=== PATIENT | female | born 1965 | race Caucasian/White ===

== ENCOUNTER 2024-06-21 18:27 | Outpatient (BNV) | payer MEDICARE, SELFPAY | END 2024-06-22 12:53 | PROVIDERS: Admitting Provider Psychiatry & Neurology Psychiatry; Visit Provider Internal Medicine Cardiovascular Disease | DX: I45.10 Unspecified right bundle-branch block (principal) | CPT/HCPCS: 93010 ==

== ENCOUNTER 2024-06-21 18:27 | Outpatient (BNV) | payer MEDICARE, MEDICAID, SELFPAY | END 2024-07-28 10:16 | PROVIDERS: Admitting Provider Psychiatry & Neurology Psychiatry; Visit Provider Internal Medicine | DX: I45.19 Other right bundle-branch block (principal) | CPT/HCPCS: 93010 ==

== ENCOUNTER 2024-06-21 18:27 | Inpatient (IN) | payer MEDICARE, SELFPAY, MEDICAID ==
--- NOTE | ~2024-06-21 | XR_ITS ---
EXAMINATION: XR FOOT, RIGHT CLINICAL INFORMATION: fall COMPARISON: None available. TECHNIQUE: 2 views of the right foot. FINDINGS: Soft tissue swelling along the dorsal aspect of the foot and ankle. Limited evaluation of the TMT joints due to overlapping structures. In the foot otherwise, no acute fracture or dislocation is identified. No erosions. No abnormal soft tissue calcification. XR/XR foot RT 2V IMPRESSION: Soft tissue swelling. Limited evaluation the tarsometatarsal joints due to overlapping structures. No acute fracture or malalignment is identified in the remainder of the bones. Electronically signed by: Amrit Floyd MD 07/28/2024 06:28 PM [facility]
[2024-06-21 18:40] VITALS: BP 133/67; PULSE 72; RESP 18; TEMP 36.8; O2SAT 99
--- NOTE | 2024-06-21 19:03 | PC.NURSE ---
Pt. arrived on unit via stretcher at 1840 accompanied by 2 sales negotiator. Pt. assisted off stretcher with assist of 2. Contraband search performed with no findings. Skin assmt. revealed warm, dry and intact skin with tatoos on upper and lower extremites. Pt. has indwelling ventura catheter for reported urinary retention, but pt. reports she has no such problem and this is how the last hospital deals with incontinence. Pt. with strong odor of urine. She is alert and oriented X 4. She has had increased depression and SI due to recent stressors, which include eviction proceedings from her apartment, a family , and her mobility issues which kept her isolated in her apartment.
[2024-06-21 20:01] VITALS: BMI 35.8
[2024-06-21] MEDS: amLODIPine Besylate 5 MG TABLET PO (21:45)
[2024-06-21] MEDS: Nicotine 14 MG PATCH.TD24 TRANSDERMA (21:45)
[2024-06-21] MEDS: Melatonin 3 MG TABLET 6 MG PO (21:46)
[2024-06-21] MEDS: Acetaminophen 325 MG TABLET 650 MG PO (21:46)
[2024-06-21] MEDS: hydrOXYzine HCL 25 MG TABLET PO (21:46)
--- NOTE | 2024-06-22 | ECG_ITS ---
Test Reason : BASELINE FOR POSSIBLE ECT Blood Pressure : / mmHG Vent. Rate : 085 BPM Atrial Rate : 085 BPM P-R Int : 154 ms QRS Dur : 102 ms QT Int : 380 ms P-R-T Axes : 064 -07 056 degrees QTc Int : 452 ms Normal sinus rhythm Incomplete right bundle branch block Borderline ECG No previous ECGs available Referred By: Tracie Cameron Electronically Signed By:Ivan Gandara
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
[2024-06-22 08:15] VITALS: BP 190/81; PULSE 68; RESP 14; TEMP 36.6; O2SAT 98
[2024-06-22] MEDS: amLODIPine Besylate 5 MG TABLET PO (08:17)
[2024-06-22] MEDS: Atorvastatin Calcium 40 MG TABLET PO (08:18)
[2024-06-22] MEDS: Multivitamin TABLET 1 TAB PO (08:18)
[2024-06-22] MEDS: Aspirin 81 MG TAB.CHEW PO (08:18)
[2024-06-22] MEDS: Cholecalciferol (Vitamin D3) 25 MCG TABLET 50 MCG PO (08:18)
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
[2024-06-22 08:32] LABS: Estimated Average Glucose 100 mg/dL; Hemoglobin A1C 110.9161 umol/L; Hemoglobin A1c % 5.1 % (<6.0); Total Hemoglobin (HGBA1C) 3446.4164 umol/L
[2024-06-22 09:14] LABS: Alanine Aminotransferase 8 U/L (0-31); Albumin Level 3.7 g/dL (3.5-5.0); Alkaline Phosphatase 66 U/L (39-117); Anion Gap 11 (12-20); Aspartate Amino Transferase 20 U/L (5-31); Bilirubin Total 0.3 mg/dL (0.0-1.0); Blood Urea Nitrogen 10 mg/dL (9-16); Calcium 9.5 mg/dL (8.4-10.2); Carbon Dioxide 27 mmol/L (22-29); Chloride 108 mmol/L (96-108); Cholesterol 188 mg/dL (<200); Creatinine Clr Calc Pharmacy 101.3; Estimated Glomerular Filt Rate > 60; Glucose Fasting 89 mg/dL (60-99); HDL Cholesterol 37 mg/dL (>40); LDL Cholesterol Calculated 111 mg/dL (<100); Potassium 3.7 mmol/L (3.3-5.1); Sodium 142 mmol/L (135-145); Total Protein 6.7 g/dL (6.5-8.0); Triglycerides 204 mg/dL (<150)
[2024-06-22 09:33] LABS: TSH reflex Free T4 3.39 uIU/mL (0.32-4.0)
--- NOTE | 2024-06-22 11:17 | PM.IMCN ---
History of Present Illness Data of Consult Service Date: 06/22/24 Primary Care Provider: None Physician HPI A 58 years old lady with PMH of HTN, HLD, MS, degenerative disc disease, smoking and Depression among others who presents from [facility] for Depression and SI. The patient had recent hospitalization for SI 2 weeks dami and had two reported attempts in past. She denies any chest pain, palpitations, SOB, nausea, vomiting, diarrhea or urinary symptoms. Hospitalist asked for medical evaluation of the patient. Review of Systems Review of Systems: No fever, chills or weakness No chest pain, palpitation No shortness of breath or coughing No abdominal pain, nausea or vomiting No urinary symptoms No any rash or wounds PMFSH Medical History Depression Social History Household Members: None Housing: Apartment Do you presently have visiting nurse or other home services: No Patient Tobacco Use Status: Current everyday Tobacco user Cigarettes Per Day: 5 Smoked in Last 30 Days: Yes Patient Interested in Nicotine Replacement: Yes Patient Given Instructions on How to Stop Smoking: No Use of substances other than those prescribed or required for medical reasons: No Currently Displaying Signs/Symptoms of Drug Intoxication Withdrawal: No Have you been hit, kicked, punched, or otherwise hurt by someone within the past year? If so, by whom?: No Do you feel safe in your current relationship?: No Current Relationship Is there a partner from a previous relationship who is making you feel unsafe now?: No Are you made to feel afraid or neglected: No Advance Directives: No Advance Directives Information Provided: No Do you have thoughts of harming others: None Do you have a plan to hurt others: No Plan Recently lost weight without trying: No Nutrition Risks: No Nutritional Risk Patient : No : No Poor oral hygiene: No Meds Allergies Allergy/AdvReac Type Severity Reaction Status Date / Time Sulfa (Sulfonamide Allergy Unknown Verified 06/21/24 20:01 Antibiotics) sulfamethoxazole Allergy Unknown Verified 06/21/24 20:01 [From Bactrim] trimethoprim [From Bactrim] Allergy Unknown Verified 06/21/24 20:01 venlafaxine [From Effexor] Allergy Unknown Verified 06/21/24 20:01 Active Medications: Current Medications Acetaminophen (Acetaminophen 325 Mg Tablet) 650 mg PO Q6H PRN PRN Reason: Headache/Pain Mild Scale (1-3) Last Admin: 06/21/24 21:46 Dose: 650 mg Al Hydroxide/Mg Hydroxide (Magnesium Hydrox/Alum Hydrox 30 Ml Oral.Susp) 30 ml PO Q6H PRN PRN Reason: Heartburn/Nausea Amlodipine Besylate (Amlodipine Besylate 5 Mg Tablet) 5 mg PO DAILY COUNTS INCLUDE 234 BEDS AT THE [facility]; Protocol Last Admin: 06/22/24 08:17 Dose: 5 mg Aspirin (Aspirin 81 Mg Tab.Chew) 81 mg PO DAILY COUNTS INCLUDE 234 BEDS AT THE [facility] Last Admin: 06/22/24 08:18 Dose: 81 mg Atorvastatin Calcium (Atorvastatin Calcium 40 Mg Tablet) 40 mg PO DAILY COUNTS INCLUDE 234 BEDS AT THE [facility] Last Admin: 06/22/24 08:18 Dose: 40 mg Hydroxyzine HCl (Hydroxyzine Hcl 25 Mg Tablet) 25 mg PO Q6H PRN PRN Reason: Anxiety Last Admin: 06/21/24 21:46 Dose: 25 mg Magnesium Hydroxide (Milk Of Magnesia 30 Ml Oral.Susp) 30 ml PO DAILY PRN PRN Reason: Constipation Melatonin (Melatonin 3 Mg Tablet) 6 mg PO BEDTIME PRN PRN Reason: Insomnia Last Admin: 06/21/24 21:46 Dose: 6 mg Multivitamins/Vitamin C (Multivitamin Tablet) 1 tab PO DAILY COUNTS INCLUDE 234 BEDS AT THE [facility] Last Admin: 06/22/24 08:18 Dose: 1 tab Nicotine (Nicotine 14 Mg Patch.Td24) 14 mg TRANSDERMA Q24H COUNTS INCLUDE 234 BEDS AT THE [facility] Last Admin: 06/21/24 21:45 Dose: 14 mg Nicotine Polacrilex (Nicotine Polacrilex 2 Mg Gum) 4 mg BUCCAL Q2H PRN PRN Reason: Nicotine Cravings Trazodone HCl (Trazodone Hcl 50 Mg Tablet) 50 mg PO BEDTIME MRX1 PRN PRN Reason: Insomnia Vitamin D (Cholecalciferol (Vitamin D3) 25 Mcg Tablet) 50 mcg PO DAILY COUNTS INCLUDE 234 BEDS AT THE [facility] Last Admin: 06/22/24 08:18 Dose: 50 mcg Home Medications ?Medication ?Instructions ?Recorded ?Confirmed ?Last Taken ?Type amlodipine 5 mg tablet 5 mg PO QAM 06/21/24 06/21/24 Unknown History aspirin 81 mg tablet 81 mg PO DAILY 06/21/24 06/21/24 Unknown History atorvastatin 40 mg tablet 40 mg PO DAILY 06/21/24 06/21/24 Unknown History carboxymethylcellulose sodium 0.5 drp PRN Dry Eyes 06/21/24 Unknown History % eye drops in a dropperette (Refresh Plus) cefpodoxime 200 mg tablet 200 mg PO Q12H 06/21/24 06/21/24 06/21/24 09:00 History cholecalciferol (vitamin D3) 50 50 mcg PO DAILY 06/21/24 06/21/24 Unknown History mcg (2,000 unit) capsule citalopram 20 mg tablet PO 06/21/24 06/21/24 Unknown History melatonin 3 mg tablet 6 mg PO BEDTIME PRN Insomnia 06/21/24 06/21/24 Unknown History multivitamin 1 tab PO DAILY 06/21/24 06/21/24 Unknown History nicotine 14 mg/24 hr daily 1 patch transdermal Q24H 06/21/24 06/21/24 Unknown History transdermal patch (Nicoderm CQ) Physical Exam Vital Signs and Narrative: Vital Signs: Last Vital Signs Temp 97.9 F 06/22/24 08:15 Pulse 68 06/22/24 08:15 Resp 14 06/22/24 08:15 BP 190/81 H 06/22/24 08:15 Pulse Ox 98 06/22/24 08:15 O2 Del Method Room Air 06/22/24 08:15 BMI result Body Mass Index 35.8 Const: Other: Constitutional : Awake, interactive, not in distress Neck : Normal inspection, Supple Cardiovascular : RRR, no JVP, no lower extremity edema Respiratory : good bilateral air entry, no crackles, wheezes or rhonchi Gastrointestinal: soft, lax, Normal bowel sounds, Non tender Skin : Warm, Dry Neurological : Alert & oriented x3, No focal deficit , CN 2-12 within normal Results Labs 06/22/24 08:08 Labs: Laboratory Results - last 24 hr 06/22/24 08:08 Anion Gap 11 L Estim Creat Clear Calc 101.3 Estimated GFR > 60 Fasting Glucose 89 Estimat Average Glucose 100 Hemoglobin A1c % 5.1 Calcium 9.5 Total Bilirubin 0.3 AST 20 ALT 8 Alkaline Phosphatase 66 Total Protein 6.7 Albumin 3.7 Triglycerides 204 H Cholesterol 188 LDL Cholesterol, Calc 111 H HDL Cholesterol 37 L TSH 3.39 Assessment and Plan (1) Depression: Status: Acute Plan A 58 years old lady with PMH of HTN, HLD, MS, degenerative disc disease, smoking and Depression among others who presents from [facility] for Depression and SI. HTN Continue Amlidpine 5mg daily Consider adding 2nd agent if remains hypertensive HLD Continue statin Smoking Advised cessation, NRT give Depression with SI psychiatrist to manage check EKG Patient has no obvious contraindications for ECT if needed , no more testing needed at this point Thank you for the consult. will follow with you as needed.
[2024-06-22 17:40] VITALS: BP 144/72
[2024-06-22 20:00] VITALS: BP 136/63; PULSE 85; RESP 16; TEMP 36.1; O2SAT 97
[2024-06-22] MEDS: Nicotine 14 MG PATCH.TD24 TRANSDERMA (21:43)
[2024-06-22] MEDS: Melatonin 3 MG TABLET 6 MG PO (21:44)
[2024-06-22] MEDS: Acetaminophen 325 MG TABLET 650 MG PO (23:04)
[2024-06-23 09:04] VITALS: BP 113/74; PULSE 62; RESP 16; TEMP 36; O2SAT 97
[2024-06-23] MEDS: Multivitamin TABLET 1 TAB PO (09:06)
[2024-06-23] MEDS: Cholecalciferol (Vitamin D3) 25 MCG TABLET 50 MCG PO (09:06)
[2024-06-23] MEDS: amLODIPine Besylate 5 MG TABLET PO (09:07)
[2024-06-23] MEDS: Aspirin 81 MG TAB.CHEW PO (09:07)
[2024-06-23] MEDS: buPROPion HCl XL 150 MG TAB.ER.24H PO (09:48)
[2024-06-23] MEDS: Cyclobenzaprine HCl 5 MG TABLET PO ×2 (09:48→20:38)
[2024-06-23 16:06] VITALS: BP 123/89
[2024-06-23] MEDS: cloNIDine HCL 0.1 MG TABLET PO (16:06)
[2024-06-23 20:00] VITALS: BP 123/59; PULSE 80; RESP 16; TEMP 36.8; O2SAT 96
[2024-06-23] MEDS: Nicotine 14 MG PATCH.TD24 TRANSDERMA (20:35)
[2024-06-23] MEDS: Acetaminophen 325 MG TABLET 650 MG PO (20:39)
[2024-06-23] MEDS: Melatonin 3 MG TABLET 6 MG PO (20:40)
[2024-06-23] MEDS: Atorvastatin Calcium 40 MG TABLET PO (20:40)
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
[2024-06-24 07:00] VITALS: BMI 32.6
[2024-06-24 08:41] VITALS: BP 127/61; PULSE 80; RESP 17; TEMP 36.1; O2SAT 97
[2024-06-24] MEDS: Cholecalciferol (Vitamin D3) 25 MCG TABLET 50 MCG PO (08:49)
[2024-06-24] MEDS: Multivitamin TABLET 1 TAB PO (08:49)
[2024-06-24] MEDS: buPROPion HCl XL 150 MG TAB.ER.24H PO (08:49)
[2024-06-24] MEDS: Aspirin 81 MG TAB.CHEW PO (08:49)
[2024-06-24] MEDS: amLODIPine Besylate 5 MG TABLET PO (08:49)
[2024-06-24] MEDS: Acetaminophen 325 MG TABLET 650 MG PO ×2 (08:55→16:13)
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
--- NOTE | 2024-06-24 17:46 | PC.NURSE ---
Patient incontinent x large amount of urine in brief, voided on the floor and also had 500cc urine in the collection hat today after supper. Clean catch urine specimen obtained and sent to lab, urine was clear yellow.
[2024-06-24 17:54] LABS: Appearance Urine Clear; Color Urine Yellow; Glucose Urine UA Negative (Negative); Leukocyte Esterase Urine Moderate (2+) (Negative); Nitrite Urine Positive (Negative); UMIC TRIGGER UACC YES; Urine Blood Negative (Negative); Urine Ketones Negative (Negative); Urine Protein Negative (Neg-Trace)
[2024-06-24 18:12] LABS: Bacteria Urine 4+ (None Seen); Hyaline Casts Urine 0-2 /LPF (0-2); RBC Urine 0-2 /HPF (0-2); Squamous Epithelial Cell Urine 0-2 /HPF (0-2); UACC Culture Trigger YES
[2024-06-24] MEDS: Nicotine 14 MG PATCH.TD24 TRANSDERMA (19:53)
[2024-06-24] MEDS: Atorvastatin Calcium 40 MG TABLET PO (19:53)
[2024-06-24 19:56] VITALS: BP 127/62; PULSE 77; RESP 16; TEMP 36.3; O2SAT 98
[2024-06-24] MEDS: Melatonin 3 MG TABLET 6 MG PO (20:40)
[2024-06-24] MEDS: levoFLOXacin 750 MG TABLET PO (20:41)
[2024-06-25 02:34] VITALS: BP 141/90
[2024-06-25] MEDS: traZODone HCL 50 MG TABLET PO (02:34)
[2024-06-25] MEDS: Cyclobenzaprine HCl 5 MG TABLET PO ×2 (02:34→12:25)
[2024-06-25] MEDS: Acetaminophen 325 MG TABLET 650 MG PO ×2 (02:34→12:26)
[2024-06-25] MEDS: cloNIDine HCL 0.1 MG TABLET PO (02:34)
[2024-06-25] MEDS: Multivitamin TABLET 1 TAB PO (08:34)
[2024-06-25] MEDS: Cholecalciferol (Vitamin D3) 25 MCG TABLET 50 MCG PO (08:34)
[2024-06-25] MEDS: buPROPion HCl XL 150 MG TAB.ER.24H PO (08:35)
[2024-06-25] MEDS: Aspirin 81 MG TAB.CHEW PO (08:35)
[2024-06-25 09:16] VITALS: BP 114/57
[2024-06-25] MEDS: amLODIPine Besylate 5 MG TABLET PO (09:16)
[2024-06-25 09:43] VITALS: BP 114/57; PULSE 87; RESP 20; TEMP 36.2; O2SAT 100
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
[2024-06-25 19:17] VITALS: BP 113/59; PULSE 86; RESP 16; TEMP 36.2; O2SAT 100
[2024-06-25] MEDS: Atorvastatin Calcium 40 MG TABLET PO (19:18)
[2024-06-25] MEDS: Nicotine 14 MG PATCH.TD24 TRANSDERMA (19:18)
[2024-06-25] MEDS: levoFLOXacin 750 MG TABLET PO (19:19)
[2024-06-26 08:46] VITALS: BP 114/68; PULSE 99; TEMP 36.4; O2SAT 96
[2024-06-26] MEDS: Cholecalciferol (Vitamin D3) 25 MCG TABLET 50 MCG PO (09:43)
[2024-06-26] MEDS: amLODIPine Besylate 5 MG TABLET PO (09:44)
[2024-06-26] MEDS: buPROPion HCl XL 150 MG TAB.ER.24H PO (09:44)
[2024-06-26] MEDS: Multivitamin TABLET 1 TAB PO (09:44)
[2024-06-26] MEDS: Aspirin 81 MG TAB.CHEW PO (09:44)
[2024-06-26] MEDS: Acetaminophen 325 MG TABLET 650 MG PO ×2 (09:58→15:33)
[2024-06-26] MEDS: Cyclobenzaprine HCl 5 MG TABLET PO (09:58)
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
[2024-06-26] MEDS: Cyclobenzaprine HCl 10 MG TABLET PO (15:32)
[2024-06-26 15:33] VITALS: BP 110/70
[2024-06-26] MEDS: cloNIDine HCL 0.1 MG TABLET PO (15:33)
[2024-06-26] MEDS: Nicotine 14 MG PATCH.TD24 TRANSDERMA (19:48)
[2024-06-26] MEDS: Atorvastatin Calcium 40 MG TABLET PO (19:48)
[2024-06-26] MEDS: levoFLOXacin 750 MG TABLET PO (19:48)
[2024-06-26 19:50] VITALS: BP 113/70; PULSE 76; RESP 16; TEMP 35.9; O2SAT 98
[2024-06-26] MEDS: Ibuprofen 600 MG TABLET PO (21:55)
[2024-06-27] MEDS: Ibuprofen 600 MG TABLET PO ×2 (08:25→18:02)
[2024-06-27] MEDS: Cyclobenzaprine HCl 10 MG TABLET PO ×2 (08:25→18:02)
[2024-06-27 08:26] VITALS: BP 125/60
[2024-06-27] MEDS: buPROPion HCl XL 150 MG TAB.ER.24H PO (08:26)
[2024-06-27] MEDS: amLODIPine Besylate 5 MG TABLET PO (08:26)
[2024-06-27] MEDS: Multivitamin TABLET 1 TAB PO (08:26)
[2024-06-27] MEDS: Aspirin 81 MG TAB.CHEW PO (08:26)
[2024-06-27] MEDS: Cholecalciferol (Vitamin D3) 25 MCG TABLET 50 MCG PO (08:26)
[2024-06-27 09:45] VITALS: BP 124/60; PULSE 85; TEMP 36.8; O2SAT 96
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
[2024-06-27] MEDS: Acetaminophen 325 MG TABLET 650 MG PO (12:03)
[2024-06-27 20:00] VITALS: BP 106/55; PULSE 88; RESP 16; TEMP 36.6; O2SAT 97
[2024-06-27] MEDS: Atorvastatin Calcium 40 MG TABLET PO (20:03)
[2024-06-27] MEDS: Nicotine 14 MG PATCH.TD24 TRANSDERMA (20:03)
[2024-06-27] MEDS: levoFLOXacin 750 MG TABLET PO (20:03)
[2024-06-27] MEDS: Gabapentin 300 MG CAPSULE PO (20:04)
[2024-06-28 08:53] VITALS: BP 131/60; PULSE 93; RESP 17; TEMP 36.2; O2SAT 96
[2024-06-28] MEDS: amLODIPine Besylate 5 MG TABLET PO (08:54)
[2024-06-28] MEDS: Gabapentin 300 MG CAPSULE PO ×2 (08:54→19:39)
[2024-06-28] MEDS: Aspirin 81 MG TAB.CHEW PO (08:54)
[2024-06-28] MEDS: Multivitamin TABLET 1 TAB PO (08:54)
[2024-06-28] MEDS: buPROPion HCl XL 150 MG TAB.ER.24H PO (08:55)
[2024-06-28] MEDS: Cholecalciferol (Vitamin D3) 25 MCG TABLET 50 MCG PO (08:55)
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
[2024-06-28 19:36] VITALS: BP 123/61; PULSE 96; RESP 18; TEMP 36.9; O2SAT 96
[2024-06-28] MEDS: levoFLOXacin 750 MG TABLET PO (19:38)
[2024-06-28] MEDS: Atorvastatin Calcium 40 MG TABLET PO (19:39)
[2024-06-28] MEDS: Nicotine 14 MG PATCH.TD24 TRANSDERMA (19:39)
[2024-06-28] MEDS: Ibuprofen 600 MG TABLET PO (22:40)
[2024-06-29 08:20] VITALS: BP 135/74; PULSE 91; RESP 14; TEMP 36; O2SAT 98
[2024-06-29] MEDS: Gabapentin 300 MG CAPSULE PO ×2 (08:22→20:42)
[2024-06-29] MEDS: Multivitamin TABLET 1 TAB PO (08:22)
[2024-06-29] MEDS: buPROPion HCl XL 150 MG TAB.ER.24H PO (08:22)
[2024-06-29] MEDS: amLODIPine Besylate 5 MG TABLET PO (08:22)
[2024-06-29] MEDS: Cholecalciferol (Vitamin D3) 25 MCG TABLET 50 MCG PO (08:22)
[2024-06-29] MEDS: Aspirin 81 MG TAB.CHEW PO (08:22)
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
[2024-06-29] MEDS: levoFLOXacin 750 MG TABLET PO (09:51)
[2024-06-29] MEDS: Throat Lozenge, Medicated LOZENGE 1 LOZENGE MUCOUS MEM (09:52)
[2024-06-29 10:33] LABS: Influenza A PCR NEGATIVE (Negative); Influenza B PCR NEGATIVE (Negative); Resp Syncy Virus RNA Qual PCR NEGATIVE (Negative); SARS COV2 PCR INHOUSE NEGATIVE (Negative)
[2024-06-29] MEDS: Ibuprofen 600 MG TABLET PO ×2 (13:33→20:42)
[2024-06-29] MEDS: hydrOXYzine HCL 25 MG TABLET PO (14:59)
[2024-06-29 20:00] VITALS: BP 137/68; PULSE 81; RESP 16; TEMP 36.6; O2SAT 98
[2024-06-29] MEDS: traZODone HCL 50 MG TABLET PO (20:42)
[2024-06-29] MEDS: Atorvastatin Calcium 40 MG TABLET PO (20:42)
[2024-06-29] MEDS: Nicotine 14 MG PATCH.TD24 TRANSDERMA (20:43)
[2024-06-30] MEDS: hydrOXYzine HCL 25 MG TABLET PO ×2 (09:44→21:22)
[2024-06-30] MEDS: Ibuprofen 600 MG TABLET PO (09:44)
[2024-06-30 09:45] VITALS: BP 122/71; PULSE 97; RESP 18; TEMP 36.3; O2SAT 99
[2024-06-30] MEDS: Gabapentin 300 MG CAPSULE PO ×3 (09:45→21:19)
[2024-06-30] MEDS: buPROPion HCl XL 300 MG TAB.ER.24H PO (09:45)
[2024-06-30] MEDS: amLODIPine Besylate 5 MG TABLET PO (09:45)
[2024-06-30] MEDS: Cholecalciferol (Vitamin D3) 25 MCG TABLET 50 MCG PO (09:45)
[2024-06-30] MEDS: Multivitamin TABLET 1 TAB PO (09:45)
[2024-06-30] MEDS: Aspirin 81 MG TAB.CHEW PO (09:45)
[2024-06-30] MEDS: levoFLOXacin 750 MG TABLET PO (09:45)
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
[2024-06-30 20:00] VITALS: BP 137/68; PULSE 93; RESP 16; TEMP 36.3; O2SAT 99
[2024-06-30] MEDS: Nicotine 14 MG PATCH.TD24 TRANSDERMA (21:18)
[2024-06-30] MEDS: traZODone HCL 50 MG TABLET PO (21:19)
[2024-06-30] MEDS: Atorvastatin Calcium 40 MG TABLET PO (21:20)
[2024-07-01 08:00] VITALS: BP 126/60; PULSE 92; RESP 16; O2SAT 100
[2024-07-01 08:07] VITALS: BP 126/60
[2024-07-01] MEDS: Cholecalciferol (Vitamin D3) 25 MCG TABLET 50 MCG PO (08:07)
[2024-07-01] MEDS: hydroCHLOROthiazide 12.5 MG TABLET PO (08:07)
[2024-07-01] MEDS: buPROPion HCl XL 300 MG TAB.ER.24H PO (08:07)
[2024-07-01] MEDS: Aspirin 81 MG TAB.CHEW PO (08:07)
[2024-07-01] MEDS: Gabapentin 300 MG CAPSULE PO ×3 (08:07→21:22)
[2024-07-01 09:04] VITALS: BMI 33.8
[2024-07-01] MEDS: Multivitamin TABLET 1 TAB PO (11:12)
[2024-07-01] MEDS: levoFLOXacin 750 MG TABLET PO (11:12)
[2024-07-01] MEDS: Acetaminophen 325 MG TABLET 650 MG PO ×2 (11:17→21:22)
[2024-07-01] MEDS: hydrOXYzine HCL 25 MG TABLET PO (14:03)
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
[2024-07-01 20:00] VITALS: BP 125/76; PULSE 90; RESP 16; TEMP 36.7; O2SAT 95
[2024-07-01] MEDS: Cyclobenzaprine HCl 10 MG TABLET PO (21:22)
[2024-07-01] MEDS: Atorvastatin Calcium 40 MG TABLET PO (21:22)
[2024-07-01] MEDS: Nicotine 14 MG PATCH.TD24 TRANSDERMA (21:23)
[2024-07-02 09:05] VITALS: BP 120/67; PULSE 93; RESP 15; TEMP 36.7; O2SAT 97
[2024-07-02] MEDS: buPROPion HCl XL 300 MG TAB.ER.24H PO (09:07)
[2024-07-02] MEDS: Aspirin 81 MG TAB.CHEW PO (09:07)
[2024-07-02] MEDS: Cholecalciferol (Vitamin D3) 25 MCG TABLET 50 MCG PO (09:07)
[2024-07-02] MEDS: Multivitamin TABLET 1 TAB PO (09:07)
[2024-07-02] MEDS: Gabapentin 300 MG CAPSULE PO ×3 (09:07→20:47)
[2024-07-02] MEDS: hydroCHLOROthiazide 12.5 MG TABLET PO (09:07)
[2024-07-02] MEDS: levoFLOXacin 750 MG TABLET PO (12:02)
[2024-07-02] MEDS: Acetaminophen 325 MG TABLET 650 MG PO (12:03)
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
[2024-07-02 20:00] VITALS: BP 125/62; PULSE 84; RESP 14; TEMP 36.4; O2SAT 98
[2024-07-02] MEDS: Nicotine 14 MG PATCH.TD24 TRANSDERMA (20:45)
[2024-07-02] MEDS: Atorvastatin Calcium 40 MG TABLET PO (20:47)
[2024-07-03 08:00] VITALS: BP 124/60; PULSE 93; RESP 18; TEMP 36.9; O2SAT 96
[2024-07-03] MEDS: Multivitamin TABLET 1 TAB PO (09:59)
[2024-07-03] MEDS: Cholecalciferol (Vitamin D3) 25 MCG TABLET 50 MCG PO (09:59)
[2024-07-03] MEDS: levoFLOXacin 750 MG TABLET PO (09:59)
[2024-07-03] MEDS: buPROPion HCl XL 300 MG TAB.ER.24H PO (09:59)
[2024-07-03] MEDS: Gabapentin 300 MG CAPSULE PO ×3 (09:59→20:17)
[2024-07-03] MEDS: hydroCHLOROthiazide 12.5 MG TABLET PO (09:59)
[2024-07-03] MEDS: Cyclobenzaprine HCl 10 MG TABLET PO (10:00)
[2024-07-03] MEDS: Aspirin 81 MG TAB.CHEW PO (10:00)
[2024-07-03] MEDS: Ibuprofen 600 MG TABLET PO (12:49)
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
[2024-07-03] MEDS: Acetaminophen 325 MG TABLET 650 MG PO (15:25)
[2024-07-03 20:00] VITALS: BP 127/61; PULSE 87; RESP 16; TEMP 36.5; O2SAT 95
[2024-07-03] MEDS: Nicotine 14 MG PATCH.TD24 TRANSDERMA (20:16)
[2024-07-03] MEDS: Atorvastatin Calcium 40 MG TABLET PO (20:17)
[2024-07-04 07:54] VITALS: BP 120/75; PULSE 84; RESP 17; TEMP 36.2; O2SAT 99
[2024-07-04] MEDS: Cholecalciferol (Vitamin D3) 25 MCG TABLET 50 MCG PO (08:06)
[2024-07-04] MEDS: Multivitamin TABLET 1 TAB PO (08:06)
[2024-07-04] MEDS: hydroCHLOROthiazide 12.5 MG TABLET PO (08:06)
[2024-07-04] MEDS: Aspirin 81 MG TAB.CHEW PO (08:06)
[2024-07-04] MEDS: buPROPion HCl XL 300 MG TAB.ER.24H PO (08:06)
[2024-07-04] MEDS: Gabapentin 300 MG CAPSULE PO ×3 (08:07→21:08)
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
[2024-07-04] MEDS: hydrOXYzine HCL 25 MG TABLET PO (16:58)
[2024-07-04 20:00] VITALS: BP 118/57; PULSE 93; RESP 16; TEMP 36.4; O2SAT 95
[2024-07-04] MEDS: Nicotine 14 MG PATCH.TD24 TRANSDERMA (21:06)
[2024-07-04] MEDS: Atorvastatin Calcium 40 MG TABLET PO (21:08)
[2024-07-05 09:35] VITALS: BP 126/62; PULSE 89; RESP 17; TEMP 36.1; O2SAT 95
[2024-07-05] MEDS: Gabapentin 300 MG CAPSULE PO ×3 (09:50→19:52)
[2024-07-05] MEDS: Cholecalciferol (Vitamin D3) 25 MCG TABLET 50 MCG PO (09:51)
[2024-07-05] MEDS: Aspirin 81 MG TAB.CHEW PO (09:51)
[2024-07-05] MEDS: buPROPion HCl XL 300 MG TAB.ER.24H PO (09:51)
[2024-07-05] MEDS: hydroCHLOROthiazide 12.5 MG TABLET PO (09:51)
[2024-07-05] MEDS: Multivitamin TABLET 1 TAB PO (09:52)
[2024-07-05] MEDS: Ibuprofen 600 MG TABLET PO (12:22)
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
[2024-07-05 19:50] VITALS: BP 138/67; PULSE 87; RESP 17; TEMP 36.9; O2SAT 97
[2024-07-05] MEDS: Nicotine 14 MG PATCH.TD24 TRANSDERMA (19:52)
[2024-07-05] MEDS: Atorvastatin Calcium 40 MG TABLET PO (19:52)
[2024-07-06 08:00] VITALS: BP 111/62; PULSE 91; RESP 12; TEMP 37.2; O2SAT 98
[2024-07-06 08:59] VITALS: BP 111/62
[2024-07-06] MEDS: hydroCHLOROthiazide 12.5 MG TABLET PO (08:59)
[2024-07-06] MEDS: buPROPion HCl XL 300 MG TAB.ER.24H PO (09:00)
[2024-07-06] MEDS: Multivitamin TABLET 1 TAB PO (09:00)
[2024-07-06] MEDS: Gabapentin 300 MG CAPSULE PO ×3 (09:01→19:58)
[2024-07-06] MEDS: Aspirin 81 MG TAB.CHEW PO (09:01)
[2024-07-06] MEDS: Cholecalciferol (Vitamin D3) 25 MCG TABLET 50 MCG PO ×2 (09:07→09:08)
[2024-07-06] MEDS: Ibuprofen 600 MG TABLET PO (13:50)
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
[2024-07-06] MEDS: hydrOXYzine HCL 25 MG TABLET PO ×2 (16:12→22:31)
[2024-07-06 19:57] VITALS: BP 125/70; PULSE 92; RESP 16; TEMP 36.4; O2SAT 94
[2024-07-06] MEDS: Nicotine 14 MG PATCH.TD24 TRANSDERMA (19:59)
[2024-07-06] MEDS: Atorvastatin Calcium 40 MG TABLET PO (19:59)
[2024-07-06] MEDS: Melatonin 3 MG TABLET 6 MG PO (22:30)
[2024-07-07] MEDS: Gabapentin 300 MG CAPSULE PO ×3 (08:20→20:53)
[2024-07-07] MEDS: Cholecalciferol (Vitamin D3) 25 MCG TABLET 50 MCG PO (08:20)
[2024-07-07] MEDS: hydroCHLOROthiazide 12.5 MG TABLET PO (08:20)
[2024-07-07] MEDS: Multivitamin TABLET 1 TAB PO (08:20)
[2024-07-07] MEDS: buPROPion HCl XL 300 MG TAB.ER.24H PO (08:21)
[2024-07-07] MEDS: Aspirin 81 MG TAB.CHEW PO (08:21)
[2024-07-07] MEDS: Nicotine 14 MG PATCH.TD24 TRANSDERMA (08:24)
[2024-07-07 08:26] VITALS: BP 133/63; PULSE 92; RESP 14; TEMP 36.6; O2SAT 99
[2024-07-07] MEDS: hydrOXYzine HCL 25 MG TABLET PO (10:02)
[2024-07-07] MEDS: Ibuprofen 600 MG TABLET PO (13:18)
[2024-07-07 20:00] VITALS: BP 121/65; PULSE 88; RESP 18; TEMP 36.7; O2SAT 95
[2024-07-07] MEDS: Atorvastatin Calcium 40 MG TABLET PO (20:53)
[2024-07-07] MEDS: Melatonin 3 MG TABLET 6 MG PO (20:53)
[2024-07-07] MEDS: Magnesium Hydrox/Alum Hydrox 30 ML ORAL.SUSP PO (20:55)
[2024-07-08 07:00] VITALS: BMI 34.1
[2024-07-08 08:25] VITALS: BP 111/62; PULSE 93; RESP 16; TEMP 36.5; O2SAT 97
[2024-07-08] MEDS: Gabapentin 300 MG CAPSULE PO ×3 (08:28→20:06)
[2024-07-08] MEDS: Aspirin 81 MG TAB.CHEW PO (08:28)
[2024-07-08] MEDS: Cholecalciferol (Vitamin D3) 25 MCG TABLET 50 MCG PO (08:28)
[2024-07-08] MEDS: Multivitamin TABLET 1 TAB PO (08:28)
[2024-07-08] MEDS: hydroCHLOROthiazide 12.5 MG TABLET PO (08:28)
[2024-07-08] MEDS: buPROPion HCl XL 300 MG TAB.ER.24H PO (08:29)
[2024-07-08] MEDS: Ibuprofen 600 MG TABLET PO (11:35)
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
[2024-07-08 20:05] VITALS: BP 109/54; PULSE 84; RESP 16; TEMP 36.1; O2SAT 95
[2024-07-08] MEDS: Atorvastatin Calcium 40 MG TABLET PO (20:06)
[2024-07-08] MEDS: Nicotine 14 MG PATCH.TD24 TRANSDERMA (20:07)
[2024-07-08] MEDS: Melatonin 3 MG TABLET 6 MG PO (21:22)
[2024-07-08] MEDS: hydrOXYzine HCL 25 MG TABLET PO (21:22)
[2024-07-09 08:00] VITALS: BP 107/55; PULSE 96; RESP 18; TEMP 36.2; O2SAT 97
[2024-07-09] MEDS: buPROPion HCl XL 300 MG TAB.ER.24H PO (08:28)
[2024-07-09] MEDS: Gabapentin 300 MG CAPSULE PO ×3 (08:29→20:10)
[2024-07-09] MEDS: Aspirin 81 MG TAB.CHEW PO (08:29)
[2024-07-09] MEDS: hydroCHLOROthiazide 12.5 MG TABLET PO (08:29)
[2024-07-09] MEDS: Multivitamin TABLET 1 TAB PO (08:30)
[2024-07-09] MEDS: Cholecalciferol (Vitamin D3) 25 MCG TABLET 50 MCG PO (08:30)
[2024-07-09] MEDS: hydrOXYzine HCL 25 MG TABLET PO (08:52)
[2024-07-09] MEDS: Acetaminophen 325 MG TABLET 650 MG PO (11:08)
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
[2024-07-09 20:00] VITALS: BP 127/73; PULSE 87; RESP 18; TEMP 36.1; O2SAT 98
[2024-07-09] MEDS: Cyclobenzaprine HCl 10 MG TABLET PO (20:09)
[2024-07-09] MEDS: Nicotine 14 MG PATCH.TD24 TRANSDERMA (20:10)
[2024-07-09] MEDS: Melatonin 3 MG TABLET 6 MG PO (20:10)
[2024-07-09] MEDS: Atorvastatin Calcium 40 MG TABLET PO (20:10)
[2024-07-10 09:09] VITALS: BP 117/62; PULSE 87; RESP 15; TEMP 36.8; O2SAT 100
[2024-07-10] MEDS: hydroCHLOROthiazide 12.5 MG TABLET PO (09:10)
[2024-07-10] MEDS: Gabapentin 300 MG CAPSULE PO ×3 (09:10→19:37)
[2024-07-10] MEDS: buPROPion HCl XL 300 MG TAB.ER.24H PO (09:10)
[2024-07-10] MEDS: Aspirin 81 MG TAB.CHEW PO (09:10)
[2024-07-10] MEDS: Cholecalciferol (Vitamin D3) 25 MCG TABLET 50 MCG PO (09:10)
[2024-07-10] MEDS: Multivitamin TABLET 1 TAB PO (09:10)
[2024-07-10] MEDS: Magnesium Hydrox/Alum Hydrox 30 ML ORAL.SUSP PO (18:24)
[2024-07-10 19:34] VITALS: BP 133/63; PULSE 82; RESP 16; TEMP 36.4; O2SAT 94
[2024-07-10] MEDS: Nicotine 14 MG PATCH.TD24 TRANSDERMA (19:37)
[2024-07-10] MEDS: Atorvastatin Calcium 40 MG TABLET PO (19:37)
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
[2024-07-11 08:22] VITALS: BP 118/59; PULSE 99; RESP 15; TEMP 36.8; O2SAT 94
[2024-07-11] MEDS: buPROPion HCl XL 300 MG TAB.ER.24H PO (08:23)
[2024-07-11] MEDS: Aspirin 81 MG TAB.CHEW PO (08:23)
[2024-07-11] MEDS: Cholecalciferol (Vitamin D3) 25 MCG TABLET 50 MCG PO (08:23)
[2024-07-11] MEDS: Multivitamin TABLET 1 TAB PO (08:23)
[2024-07-11] MEDS: Gabapentin 300 MG CAPSULE PO ×3 (08:23→19:47)
[2024-07-11] MEDS: hydroCHLOROthiazide 12.5 MG TABLET PO (08:23)
[2024-07-11] MEDS: Acetaminophen 325 MG TABLET 650 MG PO (10:06)
[2024-07-11] MEDS: hydrOXYzine HCL 25 MG TABLET PO (10:07)
[2024-07-11] MEDS: Ibuprofen 600 MG TABLET PO (10:07)
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
[2024-07-11 19:45] VITALS: BP 124/68; PULSE 80; RESP 16; TEMP 36.9; O2SAT 94
[2024-07-11] MEDS: Atorvastatin Calcium 40 MG TABLET PO (19:47)
[2024-07-11] MEDS: Nicotine 14 MG PATCH.TD24 TRANSDERMA (19:47)
[2024-07-12 08:00] VITALS: BP 132/62; PULSE 86; RESP 18; TEMP 36.3; O2SAT 97
[2024-07-12 09:05] VITALS: BP 132/62
[2024-07-12] MEDS: hydroCHLOROthiazide 12.5 MG TABLET PO (09:05)
[2024-07-12] MEDS: Cholecalciferol (Vitamin D3) 25 MCG TABLET 50 MCG PO (09:05)
[2024-07-12] MEDS: buPROPion HCl XL 300 MG TAB.ER.24H PO (09:05)
[2024-07-12] MEDS: Aspirin 81 MG TAB.CHEW PO (09:06)
[2024-07-12] MEDS: Gabapentin 300 MG CAPSULE PO ×3 (09:06→20:26)
[2024-07-12] MEDS: Multivitamin TABLET 1 TAB PO (09:06)
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
[2024-07-12] MEDS: Acetaminophen 325 MG TABLET 650 MG PO (18:03)
[2024-07-12] MEDS: hydrOXYzine HCL 25 MG TABLET PO (18:07)
[2024-07-12 20:00] VITALS: BP 138/61; PULSE 89; RESP 18; TEMP 36.2; O2SAT 94
[2024-07-12] MEDS: Nicotine 14 MG PATCH.TD24 TRANSDERMA (20:25)
[2024-07-12] MEDS: Cyclobenzaprine HCl 10 MG TABLET PO (20:26)
[2024-07-12] MEDS: Ibuprofen 600 MG TABLET PO (20:27)
[2024-07-12] MEDS: Atorvastatin Calcium 40 MG TABLET PO (20:27)
[2024-07-12] MEDS: Melatonin 3 MG TABLET 6 MG PO (20:27)
[2024-07-13 07:55] VITALS: BP 134/60; PULSE 80; RESP 18; TEMP 36.8; O2SAT 97
[2024-07-13] MEDS: Aspirin 81 MG TAB.CHEW PO (08:47)
[2024-07-13] MEDS: Gabapentin 300 MG CAPSULE PO ×3 (08:47→21:23)
[2024-07-13] MEDS: buPROPion HCl XL 300 MG TAB.ER.24H PO (08:48)
[2024-07-13] MEDS: Multivitamin TABLET 1 TAB PO (08:48)
[2024-07-13] MEDS: hydroCHLOROthiazide 12.5 MG TABLET PO (08:48)
[2024-07-13] MEDS: Cholecalciferol (Vitamin D3) 25 MCG TABLET 50 MCG PO (08:48)
[2024-07-13 20:00] VITALS: BP 110/56; PULSE 81; RESP 16; TEMP 36.8; O2SAT 98
[2024-07-13] MEDS: Nicotine 14 MG PATCH.TD24 TRANSDERMA (21:22)
[2024-07-13] MEDS: Melatonin 3 MG TABLET 6 MG PO (21:23)
[2024-07-13] MEDS: Atorvastatin Calcium 40 MG TABLET PO (21:23)
[2024-07-13] MEDS: hydrOXYzine HCL 25 MG TABLET PO (21:23)
[2024-07-13] MEDS: Ibuprofen 600 MG TABLET PO (21:23)
[2024-07-13] MEDS: Cyclobenzaprine HCl 10 MG TABLET PO (21:23)
[2024-07-14 08:00] VITALS: BP 127/66; PULSE 71; RESP 16; TEMP 36.7; O2SAT 100
[2024-07-14] MEDS: Gabapentin 300 MG CAPSULE PO ×3 (08:44→21:04)
[2024-07-14] MEDS: Cholecalciferol (Vitamin D3) 25 MCG TABLET 50 MCG PO (08:44)
[2024-07-14] MEDS: Multivitamin TABLET 1 TAB PO (08:44)
[2024-07-14] MEDS: buPROPion HCl XL 300 MG TAB.ER.24H PO (08:44)
[2024-07-14] MEDS: Aspirin 81 MG TAB.CHEW PO (08:44)
[2024-07-14] MEDS: hydroCHLOROthiazide 12.5 MG TABLET PO (08:44)
[2024-07-14 08:46] LABS: Alanine Aminotransferase 9 U/L (0-31); Albumin Level 3.7 g/dL (3.5-5.0); Alkaline Phosphatase 69 U/L (39-117); Anion Gap 11 (12-20); Aspartate Amino Transferase 16 U/L (5-31); Bilirubin Total 0.3 mg/dL (0.0-1.0); Blood Urea Nitrogen 20 mg/dL (9-16); Calcium 9.2 mg/dL (8.4-10.2); Carbon Dioxide 28 mmol/L (22-29); Chloride 110 mmol/L (96-108); Creatinine Clr Calc Pharmacy 79.4; Estimated Glomerular Filt Rate > 60; Glucose Fasting 85 mg/dL (60-99); Potassium 4.3 mmol/L (3.3-5.1); Sodium 145 mmol/L (135-145); Total Protein 6.9 g/dL (6.5-8.0)
[2024-07-14] MEDS: Ibuprofen 600 MG TABLET PO (12:47)
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
[2024-07-14] MEDS: hydrOXYzine HCL 25 MG TABLET PO ×2 (15:28→23:25)
[2024-07-14 20:00] VITALS: BP 132/72; PULSE 89; RESP 16; TEMP 35.9; O2SAT 94
[2024-07-14] MEDS: Atorvastatin Calcium 40 MG TABLET PO (21:03)
[2024-07-14] MEDS: Nicotine 14 MG PATCH.TD24 TRANSDERMA (21:04)
[2024-07-15 07:00] VITALS: BMI 35.3
[2024-07-15 08:00] VITALS: BP 128/68; PULSE 102; RESP 18; TEMP 36.7; O2SAT 96
[2024-07-15] MEDS: Gabapentin 300 MG CAPSULE PO ×3 (08:52→21:23)
[2024-07-15] MEDS: Aspirin 81 MG TAB.CHEW PO (08:52)
[2024-07-15] MEDS: buPROPion HCl XL 300 MG TAB.ER.24H PO (08:52)
[2024-07-15] MEDS: Cholecalciferol (Vitamin D3) 25 MCG TABLET 50 MCG PO (08:53)
[2024-07-15] MEDS: hydroCHLOROthiazide 12.5 MG TABLET PO (08:53)
[2024-07-15] MEDS: hydrOXYzine HCL 25 MG TABLET PO (08:59)
[2024-07-15] MEDS: Multivitamin TABLET 1 TAB PO (08:59)
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
[2024-07-15 20:00] VITALS: BP 130/60; PULSE 98; RESP 16; TEMP 36; O2SAT 96
[2024-07-15] MEDS: Atorvastatin Calcium 40 MG TABLET PO (21:23)
[2024-07-15] MEDS: Ibuprofen 600 MG TABLET PO (21:23)
[2024-07-15] MEDS: Nicotine 14 MG PATCH.TD24 TRANSDERMA (21:23)
[2024-07-16 08:00] VITALS: BP 116/80; PULSE 88; RESP 16; TEMP 36.2; O2SAT 98
[2024-07-16 08:07] VITALS: BP 116/80
[2024-07-16] MEDS: Cholecalciferol (Vitamin D3) 25 MCG TABLET 50 MCG PO (08:07)
[2024-07-16] MEDS: hydroCHLOROthiazide 12.5 MG TABLET PO (08:07)
[2024-07-16] MEDS: hydrOXYzine HCL 25 MG TABLET PO (08:07)
[2024-07-16] MEDS: buPROPion HCl XL 300 MG TAB.ER.24H PO (08:08)
[2024-07-16] MEDS: Gabapentin 300 MG CAPSULE PO ×3 (08:08→21:05)
[2024-07-16] MEDS: Aspirin 81 MG TAB.CHEW PO (08:09)
[2024-07-16] MEDS: Multivitamin TABLET 1 TAB PO (08:09)
--- NOTE | 2024-07-16 13:34 | PC.NURSE ---
Macarena is reporting pain with urination. Dr Leal made aware via [employer]. urine sample to be obtained and sent to lab.
[2024-07-16 17:27] LABS: Appearance Urine Clear; Color Urine Yellow; Glucose Urine UA Negative (Negative); Leukocyte Esterase Urine Negative (Negative); Nitrite Urine Negative (Negative); Urine Blood Negative (Negative); Urine Ketones Negative (Negative); Urine Protein Negative (Neg-Trace)
[2024-07-16 17:31] LABS: Bacteria Urine None Seen (None Seen); Hyaline Casts Urine 0-2 /LPF (0-2); RBC Urine 0-2 /HPF (0-2); Squamous Epithelial Cell Urine 0-2 /HPF (0-2); WBC Urine 0-5 /HPF (0-5)
[2024-07-16 20:00] VITALS: BP 119/60; PULSE 85; RESP 16; TEMP 36; O2SAT 95
[2024-07-16] MEDS: Nicotine 14 MG PATCH.TD24 TRANSDERMA (21:04)
[2024-07-16] MEDS: Ibuprofen 600 MG TABLET PO (21:05)
[2024-07-16] MEDS: Atorvastatin Calcium 40 MG TABLET PO (21:05)
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
[2024-07-17 08:20] VITALS: BP 116/54; PULSE 84; RESP 17; TEMP 36; O2SAT 96
[2024-07-17] MEDS: Multivitamin TABLET 1 TAB PO (08:21)
[2024-07-17] MEDS: buPROPion HCl XL 300 MG TAB.ER.24H PO (08:21)
[2024-07-17] MEDS: Aspirin 81 MG TAB.CHEW PO (08:21)
[2024-07-17] MEDS: hydroCHLOROthiazide 12.5 MG TABLET PO (08:21)
[2024-07-17] MEDS: Cholecalciferol (Vitamin D3) 25 MCG TABLET 50 MCG PO (08:21)
[2024-07-17] MEDS: Gabapentin 300 MG CAPSULE PO ×3 (08:21→21:32)
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
[2024-07-17 20:00] VITALS: BP 145/68; PULSE 94; RESP 16; TEMP 36.9; O2SAT 98
[2024-07-17] MEDS: Ibuprofen 600 MG TABLET PO (21:32)
[2024-07-17] MEDS: Atorvastatin Calcium 40 MG TABLET PO (21:32)
[2024-07-17] MEDS: Nicotine 14 MG PATCH.TD24 TRANSDERMA (21:33)
[2024-07-18 08:00] VITALS: BP 141/71; PULSE 97; RESP 20; TEMP 36.7; O2SAT 95
[2024-07-18] MEDS: Gabapentin 300 MG CAPSULE PO ×3 (09:50→20:37)
[2024-07-18] MEDS: Cholecalciferol (Vitamin D3) 25 MCG TABLET 50 MCG PO (09:50)
[2024-07-18] MEDS: Multivitamin TABLET 1 TAB PO (09:50)
[2024-07-18] MEDS: hydroCHLOROthiazide 12.5 MG TABLET PO (09:50)
[2024-07-18] MEDS: buPROPion HCl XL 300 MG TAB.ER.24H PO (09:51)
[2024-07-18] MEDS: Aspirin 81 MG TAB.CHEW PO (09:57)
[2024-07-18 20:00] VITALS: BP 142/67; PULSE 89; RESP 18; TEMP 37.1; O2SAT 96
[2024-07-18] MEDS: Nicotine 14 MG PATCH.TD24 TRANSDERMA (20:37)
[2024-07-18] MEDS: Atorvastatin Calcium 40 MG TABLET PO (20:37)
[2024-07-18] MEDS: traZODone HCL 50 MG TABLET PO (20:41)
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
[2024-07-19 08:00] VITALS: BP 136/80; PULSE 87; RESP 18; TEMP 36.5; O2SAT 99
[2024-07-19 08:25] VITALS: BP 136/80
[2024-07-19] MEDS: Multivitamin TABLET 1 TAB PO (08:25)
[2024-07-19] MEDS: hydroCHLOROthiazide 12.5 MG TABLET PO (08:25)
[2024-07-19] MEDS: Aspirin 81 MG TAB.CHEW PO (08:26)
[2024-07-19] MEDS: Gabapentin 300 MG CAPSULE PO ×3 (08:26→20:54)
[2024-07-19] MEDS: Cholecalciferol (Vitamin D3) 25 MCG TABLET 50 MCG PO (08:26)
[2024-07-19] MEDS: buPROPion HCl XL 300 MG TAB.ER.24H PO (08:26)
[2024-07-19] MEDS: Ibuprofen 600 MG TABLET PO (12:04)
[2024-07-19] MEDS: hydrOXYzine HCL 25 MG TABLET PO (12:20)
[2024-07-19 20:00] VITALS: BP 129/55; PULSE 83; RESP 18; TEMP 36.9; O2SAT 98
[2024-07-19] MEDS: Atorvastatin Calcium 40 MG TABLET PO (20:54)
[2024-07-19] MEDS: traZODone HCL 50 MG TABLET PO (20:54)
[2024-07-19] MEDS: Nicotine 14 MG PATCH.TD24 TRANSDERMA (20:55)
[2024-07-19] MEDS: Acetaminophen 325 MG TABLET 650 MG PO (23:16)
[2024-07-20 07:55] VITALS: BP 117/61; PULSE 79; RESP 18; TEMP 36.6; O2SAT 96
[2024-07-20] MEDS: Gabapentin 300 MG CAPSULE PO ×3 (08:16→20:09)
[2024-07-20] MEDS: Multivitamin TABLET 1 TAB PO (08:17)
[2024-07-20] MEDS: hydroCHLOROthiazide 12.5 MG TABLET PO (08:17)
[2024-07-20] MEDS: buPROPion HCl XL 300 MG TAB.ER.24H PO (08:17)
[2024-07-20] MEDS: Cholecalciferol (Vitamin D3) 25 MCG TABLET 50 MCG PO (08:17)
[2024-07-20] MEDS: Aspirin 81 MG TAB.CHEW PO (08:17)
[2024-07-20 20:07] VITALS: BP 129/60; PULSE 84; RESP 16; TEMP 37; O2SAT 97
[2024-07-20] MEDS: Atorvastatin Calcium 40 MG TABLET PO (20:09)
[2024-07-20] MEDS: Nicotine 14 MG PATCH.TD24 TRANSDERMA (20:09)
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
[2024-07-21 08:00] VITALS: BP 123/59; PULSE 79; RESP 16; TEMP 36.6; O2SAT 97
[2024-07-21] MEDS: hydroCHLOROthiazide 12.5 MG TABLET PO (08:07)
[2024-07-21] MEDS: Cholecalciferol (Vitamin D3) 25 MCG TABLET 50 MCG PO (08:07)
[2024-07-21] MEDS: Multivitamin TABLET 1 TAB PO (08:07)
[2024-07-21] MEDS: Gabapentin 300 MG CAPSULE PO ×3 (08:08→19:50)
[2024-07-21] MEDS: Aspirin 81 MG TAB.CHEW PO (08:08)
[2024-07-21] MEDS: buPROPion HCl XL 150 MG TAB.ER.24H 450 MG PO (08:08)
[2024-07-21] MEDS: Acetaminophen 325 MG TABLET 650 MG PO (11:53)
[2024-07-21] MEDS: Ibuprofen 600 MG TABLET PO (15:44)
[2024-07-21] MEDS: Atorvastatin Calcium 40 MG TABLET PO (19:28)
[2024-07-21] MEDS: Nicotine 14 MG PATCH.TD24 TRANSDERMA (19:28)
[2024-07-21 19:53] VITALS: BP 149/64; PULSE 81; RESP 15; TEMP 35.9; O2SAT 96
[2024-07-21] MEDS: Melatonin 3 MG TABLET 6 MG PO (22:12)
[2024-07-21] MEDS: hydrOXYzine HCL 25 MG TABLET PO (22:12)
[2024-07-21] MEDS: traZODone HCL 50 MG TABLET PO (22:12)
[2024-07-22 07:55] VITALS: BP 127/63; PULSE 77; RESP 18; TEMP 36.6; O2SAT 93
[2024-07-22] MEDS: buPROPion HCl XL 150 MG TAB.ER.24H 450 MG PO (08:30)
[2024-07-22] MEDS: Cholecalciferol (Vitamin D3) 25 MCG TABLET 50 MCG PO (08:30)
[2024-07-22] MEDS: hydroCHLOROthiazide 12.5 MG TABLET PO (08:30)
[2024-07-22] MEDS: Aspirin 81 MG TAB.CHEW PO (08:31)
[2024-07-22] MEDS: Gabapentin 300 MG CAPSULE PO ×3 (08:31→20:45)
[2024-07-22] MEDS: Multivitamin TABLET 1 TAB PO (08:31)
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
[2024-07-22 20:00] VITALS: BP 140/63; PULSE 84; RESP 18; TEMP 36.4; O2SAT 99
[2024-07-22] MEDS: Nicotine 14 MG PATCH.TD24 TRANSDERMA (20:43)
[2024-07-22] MEDS: Atorvastatin Calcium 40 MG TABLET PO (20:45)
[2024-07-23 08:20] VITALS: BP 121/59; PULSE 80; RESP 18; TEMP 36.6; O2SAT 99
[2024-07-23] MEDS: Cholecalciferol (Vitamin D3) 25 MCG TABLET 50 MCG PO (08:27)
[2024-07-23] MEDS: buPROPion HCl XL 150 MG TAB.ER.24H 450 MG PO (08:28)
[2024-07-23] MEDS: Gabapentin 300 MG CAPSULE PO ×3 (08:29→19:30)
[2024-07-23] MEDS: Aspirin 81 MG TAB.CHEW PO (08:29)
[2024-07-23] MEDS: hydroCHLOROthiazide 12.5 MG TABLET PO (08:29)
[2024-07-23] MEDS: Multivitamin TABLET 1 TAB PO (08:29)
[2024-07-23] MEDS: Acetaminophen 325 MG TABLET 650 MG PO (08:57)
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
[2024-07-23] MEDS: Atorvastatin Calcium 40 MG TABLET PO (19:30)
[2024-07-23] MEDS: Nicotine 14 MG PATCH.TD24 TRANSDERMA (19:30)
[2024-07-23 20:00] VITALS: BP 133/65; PULSE 86; RESP 16; TEMP 36.3; O2SAT 99
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
[2024-07-24 08:00] VITALS: BP 151/70; PULSE 79; RESP 18; TEMP 36.1; O2SAT 96
[2024-07-24] MEDS: Multivitamin TABLET 1 TAB PO (08:32)
[2024-07-24] MEDS: Aspirin 81 MG TAB.CHEW PO (08:32)
[2024-07-24] MEDS: Gabapentin 300 MG CAPSULE PO ×3 (08:32→21:21)
[2024-07-24 08:33] VITALS: BP 151/70
[2024-07-24] MEDS: Cholecalciferol (Vitamin D3) 25 MCG TABLET 50 MCG PO (08:33)
[2024-07-24] MEDS: hydroCHLOROthiazide 12.5 MG TABLET PO (08:33)
[2024-07-24] MEDS: buPROPion HCl XL 150 MG TAB.ER.24H 450 MG PO (08:33)
[2024-07-24] MEDS: Ibuprofen 600 MG TABLET PO (08:37)
[2024-07-24 12:11] LABS: Appearance Urine Clear; Color Urine Yellow; Glucose Urine UA Negative (Negative); Leukocyte Esterase Urine Negative (Negative); Nitrite Urine Negative (Negative); Urine Blood Negative (Negative); Urine Ketones Negative (Negative); Urine Protein Negative (Neg-Trace)
[2024-07-24 12:14] LABS: Bacteria Urine 2+ (None Seen); Hyaline Casts Urine 0-2 /LPF (0-2); RBC Urine 0-2 /HPF (0-2); WBC Urine 0-5 /HPF (0-5)
[2024-07-24] MEDS: Acetaminophen 325 MG TABLET 650 MG PO (12:24)
[2024-07-24] MEDS: hydrOXYzine HCL 25 MG TABLET PO (12:24)
[2024-07-24 20:46] VITALS: BP 149/76; PULSE 92; RESP 16; TEMP 36.3; O2SAT 92
[2024-07-24] MEDS: Nicotine 14 MG PATCH.TD24 TRANSDERMA (21:21)
[2024-07-24] MEDS: Atorvastatin Calcium 40 MG TABLET PO (21:21)
[2024-07-24] MEDS: Throat Lozenge, Medicated LOZENGE 1 LOZENGE MUCOUS MEM (21:27)
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
[2024-07-25 08:00] VITALS: BP 158/75; PULSE 98; RESP 18; TEMP 36.9; O2SAT 97
[2024-07-25 08:14] VITALS: BP 158/75
[2024-07-25] MEDS: buPROPion HCl XL 150 MG TAB.ER.24H 450 MG PO (08:14)
[2024-07-25] MEDS: Gabapentin 300 MG CAPSULE PO ×3 (08:14→20:23)
[2024-07-25] MEDS: Multivitamin TABLET 1 TAB PO (08:14)
[2024-07-25] MEDS: Cholecalciferol (Vitamin D3) 25 MCG TABLET 50 MCG PO (08:14)
[2024-07-25] MEDS: hydroCHLOROthiazide 12.5 MG TABLET PO (08:14)
[2024-07-25] MEDS: Aspirin 81 MG TAB.CHEW PO (08:15)
[2024-07-25] MEDS: Acetaminophen 325 MG TABLET 650 MG PO ×2 (08:18→14:29)
[2024-07-25] MEDS: Throat Lozenge, Medicated LOZENGE 1 LOZENGE MUCOUS MEM (14:29)
[2024-07-25] MEDS: Nicotine 14 MG PATCH.TD24 TRANSDERMA (20:23)
[2024-07-25] MEDS: Atorvastatin Calcium 40 MG TABLET PO (20:23)
[2024-07-25 20:51] VITALS: BP 130/60; PULSE 84; RESP 17; TEMP 35.9; O2SAT 99
[2024-07-26 08:22] VITALS: BP 147/67; PULSE 92; RESP 18; TEMP 36.8; O2SAT 96
[2024-07-26] MEDS: Cyclobenzaprine HCl 10 MG TABLET PO (08:26)
[2024-07-26] MEDS: Cholecalciferol (Vitamin D3) 25 MCG TABLET 50 MCG PO (08:28)
[2024-07-26] MEDS: buPROPion HCl XL 150 MG TAB.ER.24H 450 MG PO (08:28)
[2024-07-26] MEDS: Aspirin 81 MG TAB.CHEW PO (08:28)
[2024-07-26] MEDS: Gabapentin 300 MG CAPSULE PO ×3 (08:29→20:42)
[2024-07-26] MEDS: hydroCHLOROthiazide 12.5 MG TABLET PO (08:29)
[2024-07-26] MEDS: Multivitamin TABLET 1 TAB PO (08:30)
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
--- NOTE | 2024-07-26 15:53 | PC.NURSE ---
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 Roland updated by this casualty underwriter via [employer].
[2024-07-26 20:00] VITALS: BP 130/71; PULSE 90; RESP 16; TEMP 36.7; O2SAT 100
[2024-07-26] MEDS: Nicotine 14 MG PATCH.TD24 TRANSDERMA (20:40)
[2024-07-26] MEDS: Melatonin 3 MG TABLET 6 MG PO (20:41)
[2024-07-26] MEDS: Atorvastatin Calcium 40 MG TABLET PO (20:41)
[2024-07-26] MEDS: traZODone HCL 50 MG TABLET PO (20:42)
[2024-07-27 08:00] VITALS: BP 112/82; PULSE 82; RESP 18; TEMP 36.3; O2SAT 94
[2024-07-27] MEDS: buPROPion HCl XL 150 MG TAB.ER.24H 450 MG PO (08:28)
[2024-07-27] MEDS: Multivitamin TABLET 1 TAB PO (08:28)
[2024-07-27] MEDS: Gabapentin 300 MG CAPSULE PO ×3 (08:28→20:43)
[2024-07-27 08:29] VITALS: BP 112/82
[2024-07-27] MEDS: Cholecalciferol (Vitamin D3) 25 MCG TABLET 50 MCG PO (08:29)
[2024-07-27] MEDS: hydroCHLOROthiazide 12.5 MG TABLET PO (08:29)
[2024-07-27] MEDS: Aspirin 81 MG TAB.CHEW PO (08:29)
[2024-07-27] MEDS: Throat Lozenge, Medicated LOZENGE 1 LOZENGE MUCOUS MEM (08:59)
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
[2024-07-27] MEDS: Ibuprofen 600 MG TABLET PO (13:24)
[2024-07-27 20:00] VITALS: BP 117/61; PULSE 78; RESP 18; TEMP 35.8; O2SAT 96
[2024-07-27] MEDS: Nicotine 14 MG PATCH.TD24 TRANSDERMA (20:40)
[2024-07-27] MEDS: Atorvastatin Calcium 40 MG TABLET PO (20:43)
[2024-07-27] MEDS: traZODone HCL 50 MG TABLET PO (20:43)
[2024-07-27] MEDS: Melatonin 3 MG TABLET 6 MG PO (20:43)
[2024-07-28 08:00] VITALS: BP 103/59; BP 110/69; PULSE 76; PULSE 81; RESP 18; TEMP 36.3; TEMP 36.8; O2SAT 96; O2SAT 97
[2024-07-28] MEDS: Aspirin 81 MG TAB.CHEW PO (08:55)
[2024-07-28] MEDS: Throat Lozenge, Medicated LOZENGE 1 LOZENGE MUCOUS MEM ×2 (08:55→16:22)
[2024-07-28] MEDS: Cholecalciferol (Vitamin D3) 25 MCG TABLET 50 MCG PO (08:55)
[2024-07-28] MEDS: hydroCHLOROthiazide 12.5 MG TABLET PO (08:55)
[2024-07-28] MEDS: buPROPion HCl XL 150 MG TAB.ER.24H 450 MG PO (08:55)
[2024-07-28] MEDS: Multivitamin TABLET 1 TAB PO (08:55)
[2024-07-28] MEDS: Gabapentin 300 MG CAPSULE PO ×3 (08:55→21:28)
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
[2024-07-28 10:10] VITALS: BP 149/64; PULSE 18; RESP 18; TEMP 36.3; O2SAT 97
--- NOTE | 2024-07-28 10:16 | ECG_ITS ---
Test Reason : POST FALL Blood Pressure : / mmHG Vent. Rate : 092 BPM Atrial Rate : 092 BPM P-R Int : 154 ms QRS Dur : 096 ms QT Int : 370 ms P-R-T Axes : 054 -20 036 degrees QTc Int : 457 ms Normal sinus rhythm Incomplete right bundle branch block Borderline ECG When compared with ECG of 22-JUN-2024 12:53, No significant change was found Referred By: Haseeb Roland Electronically Signed By:SOPHIE SUMNER
[2024-07-28 10:17] LABS: Glucose, Whole Blood 77 mg/dL (60-115)
--- NOTE | 2024-07-28 10:23 | PM.EVENT ---
Event Note Date of Service: 07/28/24 Event Note: S:58 year old women with a hx of stroke and MS. Had a fall in her bathroom. She reported that she was walking with her walker and suddenly felt weakness in her legs and burning and crumpled to the ground hitting her bottom. She denied head strike, LOC, headache, dizziness, blurred vision. O:alert and oriented normal lung expansion head normalcephalic atraumatic VS at rest 97.5, 17, 96, 149/64, 95% ra AP Fall without LOC or headstrike. Patient able, with asistance to stand, ambulated with walker to her bed without difficulty Fall Neuros and vitals Q4 x 24hrs oob with with walker at all times Knee pain ambulated to bed may use ice Time Spent With Patient Time: Total time managing care of this patient today ____ minutes.
[2024-07-28 10:27] VITALS: BP 149/64; PULSE 96; RESP 17; TEMP 36.4; O2SAT 95
[2024-07-28] MEDS: Cyclobenzaprine HCl 10 MG TABLET PO ×2 (10:41→16:21)
[2024-07-28] MEDS: Fluticasone Propionate Nasal 16 GM SPRAY 1 SPRAY NOSTRIL-B (10:42)
[2024-07-28 14:25] LABS: Influenza A PCR NEGATIVE (Negative); Influenza B PCR NEGATIVE (Negative); Resp Syncy Virus RNA Qual PCR NEGATIVE (Negative); SARS COV2 PCR INHOUSE NEGATIVE (Negative)
[2024-07-28] MEDS: Ibuprofen 600 MG TABLET PO (16:22)
--- NOTE | 2024-07-28 17:47 | PC.NURSE ---
Macarena had an unwitnessed fall around 1010. JOIST SETTER called, VS obtained as well as POC. She denied hitting her reported she was brushing her teeth, I felt my legs starting to shake, they gave up on me and I fell. She reported hitting her right knee, stated It hurts, some redness noted. She was able to get up with assistance using her walker, ambulated to bed. She asked for received Flexeril. Silvana HUNTLEY present.
[2024-07-28] MEDS: Acetaminophen 325 MG TABLET 650 MG PO (18:48)
[2024-07-28 19:32] VITALS: BP 117/65; PULSE 79; TEMP 36.4; O2SAT 98
[2024-07-28] MEDS: Nicotine 14 MG PATCH.TD24 TRANSDERMA (21:25)
[2024-07-28] MEDS: Melatonin 3 MG TABLET 6 MG PO (21:28)
[2024-07-28] MEDS: Atorvastatin Calcium 40 MG TABLET PO (21:28)
[2024-07-28] MEDS: traZODone HCL 50 MG TABLET PO (21:28)
[2024-07-29] MEDS: Acetaminophen 325 MG TABLET 650 MG PO ×2 (06:33→21:41)
[2024-07-29 08:00] VITALS: BP 110/68; PULSE 76; RESP 18; TEMP 36.6; O2SAT 97
[2024-07-29] MEDS: Gabapentin 300 MG CAPSULE PO ×3 (08:15→20:57)
[2024-07-29] MEDS: Cholecalciferol (Vitamin D3) 25 MCG TABLET 50 MCG PO (08:15)
[2024-07-29] MEDS: Aspirin 81 MG TAB.CHEW PO (08:15)
[2024-07-29] MEDS: hydroCHLOROthiazide 25 MG TABLET PO (08:16)
[2024-07-29] MEDS: Multivitamin TABLET 1 TAB PO (08:16)
[2024-07-29] MEDS: buPROPion HCl XL 150 MG TAB.ER.24H 450 MG PO (08:16)
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
[2024-07-29] MEDS: Fluticasone Propionate Nasal 16 GM SPRAY 1 SPRAY NOSTRIL-B (10:02)
[2024-07-29 12:50] VITALS: BP 110/68; PULSE 76; O2SAT 97
[2024-07-29 19:14] VITALS: BP 124/58; PULSE 88; TEMP 37; O2SAT 99
[2024-07-29] MEDS: Nicotine 14 MG PATCH.TD24 TRANSDERMA (20:58)
[2024-07-29] MEDS: Atorvastatin Calcium 40 MG TABLET PO (20:58)
[2024-07-30 09:34] VITALS: BP 144/76; PULSE 91; RESP 19; TEMP 36.8; O2SAT 94
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
[2024-07-30] MEDS: Fluticasone Propionate Nasal 16 GM SPRAY 1 SPRAY NOSTRIL-B (09:45)
[2024-07-30] MEDS: Acetaminophen 325 MG TABLET 650 MG PO ×2 (09:45→20:03)
[2024-07-30] MEDS: buPROPion HCl XL 150 MG TAB.ER.24H 450 MG PO (09:45)
[2024-07-30] MEDS: Aspirin 81 MG TAB.CHEW PO (09:45)
[2024-07-30] MEDS: Gabapentin 300 MG CAPSULE PO ×3 (09:46→20:04)
[2024-07-30] MEDS: hydroCHLOROthiazide 25 MG TABLET PO (09:46)
[2024-07-30] MEDS: Multivitamin TABLET 1 TAB PO (09:46)
[2024-07-30] MEDS: Cholecalciferol (Vitamin D3) 25 MCG TABLET 50 MCG PO (09:46)
[2024-07-30] MEDS: Ibuprofen 600 MG TABLET PO ×2 (15:00→20:04)
[2024-07-30 20:00] VITALS: BP 125/59; PULSE 83; RESP 16; TEMP 36.6; O2SAT 97
[2024-07-30] MEDS: Nicotine 14 MG PATCH.TD24 TRANSDERMA (20:01)
[2024-07-30] MEDS: Atorvastatin Calcium 40 MG TABLET PO (20:05)
[2024-07-31 08:00] VITALS: BP 111/59; PULSE 85; RESP 18; TEMP 36.3; O2SAT 95
[2024-07-31] MEDS: Fluticasone Propionate Nasal 16 GM SPRAY 1 SPRAY NOSTRIL-B (08:26)
[2024-07-31] MEDS: Acetaminophen 325 MG TABLET 650 MG PO ×2 (08:26→20:44)
[2024-07-31] MEDS: hydrOXYzine HCL 25 MG TABLET PO ×2 (08:26→20:45)
[2024-07-31] MEDS: Cholecalciferol (Vitamin D3) 25 MCG TABLET 50 MCG PO (08:27)
[2024-07-31] MEDS: Gabapentin 300 MG CAPSULE PO ×3 (08:27→20:27)
[2024-07-31] MEDS: buPROPion HCl XL 150 MG TAB.ER.24H 450 MG PO (08:28)
[2024-07-31] MEDS: Aspirin 81 MG TAB.CHEW PO (08:31)
[2024-07-31 08:32] VITALS: BP 111/59
[2024-07-31] MEDS: Multivitamin TABLET 1 TAB PO (08:32)
[2024-07-31] MEDS: hydroCHLOROthiazide 25 MG TABLET PO (08:32)
[2024-07-31 20:00] VITALS: BP 123/62; PULSE 95; RESP 18; TEMP 37.4; O2SAT 95
[2024-07-31] MEDS: Nicotine 14 MG PATCH.TD24 TRANSDERMA (20:25)
[2024-07-31] MEDS: Ibuprofen 600 MG TABLET PO (20:26)
[2024-07-31] MEDS: Melatonin 3 MG TABLET 6 MG PO (20:27)
[2024-07-31] MEDS: guaiFENesin 100 MG/5 ML 5 ML LIQUID PO (20:45)
[2024-07-31] MEDS: Atorvastatin Calcium 40 MG TABLET PO (21:49)
[2024-08-01 09:05] VITALS: BP 178/74; PULSE 88; RESP 18; TEMP 36.4; O2SAT 98
[2024-08-01] MEDS: buPROPion HCl XL 150 MG TAB.ER.24H 450 MG PO (09:07)
[2024-08-01] MEDS: Cholecalciferol (Vitamin D3) 25 MCG TABLET 50 MCG PO (09:08)
[2024-08-01] MEDS: Acetaminophen 325 MG TABLET 650 MG PO ×3 (09:09→21:13)
[2024-08-01] MEDS: hydroCHLOROthiazide 25 MG TABLET PO (09:09)
[2024-08-01] MEDS: Aspirin 81 MG TAB.CHEW PO (09:10)
[2024-08-01] MEDS: Multivitamin TABLET 1 TAB PO (09:10)
[2024-08-01] MEDS: Gabapentin 300 MG CAPSULE PO ×3 (09:10→21:13)
[2024-08-01] MEDS: Fluticasone Propionate Nasal 16 GM SPRAY 1 SPRAY NOSTRIL-B (09:43)
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
--- NOTE | 2024-08-01 17:07 | PC.NURSE ---
Ermelinda Pina MANAGER TREASURY visited and updated that patient's right foot had increased edema. Ermelinda checked her right foot and does not think that she needs an x ray, that it is just edema.
[2024-08-01 20:00] VITALS: BP 140/67; PULSE 77; RESP 16; TEMP 36.3; O2SAT 96
[2024-08-01] MEDS: Nicotine 14 MG PATCH.TD24 TRANSDERMA (21:12)
[2024-08-01] MEDS: Melatonin 3 MG TABLET 6 MG PO (21:13)
[2024-08-01] MEDS: Atorvastatin Calcium 40 MG TABLET PO (21:14)
[2024-08-01] MEDS: hydrOXYzine HCL 25 MG TABLET PO (21:14)
[2024-08-01] MEDS: guaiFENesin 100 MG/5 ML 5 ML LIQUID PO (21:14)
[2024-08-02 08:33] VITALS: BP 119/63; PULSE 90; RESP 18; TEMP 36.4; O2SAT 99
[2024-08-02] MEDS: hydrOXYzine HCL 25 MG TABLET PO (08:36)
[2024-08-02] MEDS: Multivitamin TABLET 1 TAB PO (08:36)
[2024-08-02] MEDS: Aspirin 81 MG TAB.CHEW PO (08:36)
[2024-08-02] MEDS: Furosemide 20 MG TABLET PO (08:36)
[2024-08-02] MEDS: hydroCHLOROthiazide 25 MG TABLET PO (08:36)
[2024-08-02] MEDS: buPROPion HCl XL 150 MG TAB.ER.24H 450 MG PO (08:36)
[2024-08-02] MEDS: Cyclobenzaprine HCl 10 MG TABLET PO (08:36)
[2024-08-02] MEDS: Cholecalciferol (Vitamin D3) 25 MCG TABLET 50 MCG PO (08:37)
[2024-08-02] MEDS: Ibuprofen 600 MG TABLET PO (08:37)
[2024-08-02] MEDS: Acetaminophen 325 MG TABLET 650 MG PO (08:37)
[2024-08-02] MEDS: Gabapentin 300 MG CAPSULE PO ×3 (08:37→20:14)
[2024-08-02] MEDS: Fluticasone Propionate Nasal 16 GM SPRAY 1 SPRAY NOSTRIL-B (08:40)
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
[2024-08-02 20:00] VITALS: BP 141/78; PULSE 101; RESP 18; TEMP 36.6; O2SAT 98
[2024-08-02] MEDS: Nicotine 14 MG PATCH.TD24 TRANSDERMA (20:13)
[2024-08-02] MEDS: Melatonin 3 MG TABLET 6 MG PO (20:13)
[2024-08-02] MEDS: Atorvastatin Calcium 40 MG TABLET PO (20:14)
[2024-08-03 08:35] VITALS: BP 150/70; PULSE 100; RESP 18; TEMP 36.8; O2SAT 97
[2024-08-03] MEDS: Gabapentin 300 MG CAPSULE PO ×3 (08:37→20:06)
[2024-08-03] MEDS: Multivitamin TABLET 1 TAB PO (08:37)
[2024-08-03] MEDS: Furosemide 20 MG TABLET PO (08:37)
[2024-08-03] MEDS: Aspirin 81 MG TAB.CHEW PO (08:37)
[2024-08-03] MEDS: buPROPion HCl XL 150 MG TAB.ER.24H 450 MG PO (08:37)
[2024-08-03] MEDS: hydroCHLOROthiazide 25 MG TABLET PO (08:37)
[2024-08-03] MEDS: Cholecalciferol (Vitamin D3) 25 MCG TABLET 50 MCG PO (08:38)
[2024-08-03] MEDS: Fluticasone Propionate Nasal 16 GM SPRAY 1 SPRAY NOSTRIL-B (08:38)
[2024-08-03] MEDS: hydrOXYzine HCL 25 MG TABLET PO (16:08)
[2024-08-03 20:00] VITALS: BP 154/70; PULSE 104; RESP 16; TEMP 36.8; O2SAT 95
[2024-08-03] MEDS: Atorvastatin Calcium 40 MG TABLET PO (20:06)
[2024-08-03] MEDS: Nicotine 14 MG PATCH.TD24 TRANSDERMA (20:06)
[2024-08-04 08:00] VITALS: BP 144/72; PULSE 87; RESP 18; TEMP 36.3; O2SAT 95
[2024-08-04 08:49] VITALS: BP 144/72
[2024-08-04] MEDS: hydroCHLOROthiazide 25 MG TABLET PO (08:49)
[2024-08-04] MEDS: Fluticasone Propionate Nasal 16 GM SPRAY 1 SPRAY NOSTRIL-B (08:49)
[2024-08-04] MEDS: Gabapentin 300 MG CAPSULE PO ×3 (08:49→20:36)
[2024-08-04 08:50] VITALS: BP 144/72
[2024-08-04] MEDS: buPROPion HCl XL 150 MG TAB.ER.24H 450 MG PO (08:50)
[2024-08-04] MEDS: Multivitamin TABLET 1 TAB PO (08:50)
[2024-08-04] MEDS: Aspirin 81 MG TAB.CHEW PO (08:50)
[2024-08-04] MEDS: Furosemide 20 MG TABLET PO (08:50)
[2024-08-04] MEDS: Cholecalciferol (Vitamin D3) 25 MCG TABLET 50 MCG PO (08:50)
[2024-08-04] MEDS: Acetaminophen 325 MG TABLET 650 MG PO (11:26)
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
[2024-08-04 20:00] VITALS: BP 134/63; PULSE 95; RESP 17; TEMP 36.9; O2SAT 97
[2024-08-04] MEDS: Atorvastatin Calcium 40 MG TABLET PO (20:36)
[2024-08-04] MEDS: Nicotine 14 MG PATCH.TD24 TRANSDERMA (20:36)
[2024-08-04] MEDS: hydrOXYzine HCL 25 MG TABLET PO (20:36)
[2024-08-05 07:00] VITALS: BMI 34.3
[2024-08-05 08:14] VITALS: BP 141/74; PULSE 89; RESP 17; TEMP 36.6; O2SAT 98
[2024-08-05] MEDS: Acetaminophen 325 MG TABLET 650 MG PO (08:15)
[2024-08-05] MEDS: Furosemide 20 MG TABLET PO (08:15)
[2024-08-05] MEDS: Gabapentin 300 MG CAPSULE PO ×3 (08:15→20:29)
[2024-08-05] MEDS: buPROPion HCl XL 150 MG TAB.ER.24H 450 MG PO (08:15)
[2024-08-05] MEDS: Cholecalciferol (Vitamin D3) 25 MCG TABLET 50 MCG PO (08:15)
[2024-08-05] MEDS: hydroCHLOROthiazide 25 MG TABLET PO (08:16)
[2024-08-05] MEDS: Multivitamin TABLET 1 TAB PO (08:16)
[2024-08-05] MEDS: Aspirin 81 MG TAB.CHEW PO (08:16)
[2024-08-05] MEDS: Fluticasone Propionate Nasal 16 GM SPRAY 1 SPRAY NOSTRIL-B (08:19)
[2024-08-05 09:48] VITALS: BP 141/74; PULSE 89; O2SAT 98
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
[2024-08-05] MEDS: Ibuprofen 600 MG TABLET PO (11:57)
[2024-08-05 20:00] VITALS: BP 140/66; PULSE 75; RESP 18; TEMP 36.7; O2SAT 97
[2024-08-05] MEDS: Melatonin 3 MG TABLET 6 MG PO (20:28)
[2024-08-05] MEDS: Nicotine 14 MG PATCH.TD24 TRANSDERMA (20:29)
[2024-08-05] MEDS: Atorvastatin Calcium 40 MG TABLET PO (20:29)
[2024-08-05] MEDS: traZODone HCL 50 MG TABLET PO (20:29)
[2024-08-05] MEDS: hydrOXYzine HCL 25 MG TABLET PO (20:29)
[2024-08-06 08:32] VITALS: BP 119/58; PULSE 90; RESP 19; TEMP 36.2; O2SAT 99
[2024-08-06] MEDS: buPROPion HCl XL 150 MG TAB.ER.24H 450 MG PO (08:33)
[2024-08-06] MEDS: Multivitamin TABLET 1 TAB PO (08:33)
[2024-08-06] MEDS: hydroCHLOROthiazide 25 MG TABLET PO (08:33)
[2024-08-06] MEDS: Cholecalciferol (Vitamin D3) 25 MCG TABLET 50 MCG PO (08:33)
[2024-08-06] MEDS: Furosemide 20 MG TABLET PO (08:33)
[2024-08-06] MEDS: Gabapentin 300 MG CAPSULE PO ×3 (08:34→19:58)
[2024-08-06] MEDS: Acetaminophen 325 MG TABLET 650 MG PO ×2 (08:34→22:06)
[2024-08-06] MEDS: Aspirin 81 MG TAB.CHEW PO (08:34)
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
[2024-08-06] MEDS: Atorvastatin Calcium 40 MG TABLET PO (19:58)
[2024-08-06] MEDS: Nicotine 14 MG PATCH.TD24 TRANSDERMA (19:59)
[2024-08-06 20:00] VITALS: BP 116/71; PULSE 62; RESP 16; TEMP 36.6; O2SAT 96
[2024-08-06] MEDS: hydrOXYzine HCL 25 MG TABLET PO (22:07)
[2024-08-06] MEDS: Ibuprofen 600 MG TABLET PO (22:07)
[2024-08-07 08:00] VITALS: BP 129/66; PULSE 78; RESP 18; TEMP 36.3; O2SAT 98
[2024-08-07] MEDS: buPROPion HCl XL 150 MG TAB.ER.24H 450 MG PO (09:07)
[2024-08-07] MEDS: Gabapentin 300 MG CAPSULE PO ×3 (09:07→19:37)
[2024-08-07] MEDS: Fluticasone Propionate Nasal 16 GM SPRAY 1 SPRAY NOSTRIL-B (09:07)
[2024-08-07 09:08] VITALS: BP 129/66
[2024-08-07] MEDS: Cholecalciferol (Vitamin D3) 25 MCG TABLET 50 MCG PO (09:08)
[2024-08-07] MEDS: Furosemide 20 MG TABLET PO (09:08)
[2024-08-07] MEDS: Aspirin 81 MG TAB.CHEW PO (09:08)
[2024-08-07] MEDS: Multivitamin TABLET 1 TAB PO (09:08)
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
[2024-08-07] MEDS: Acetaminophen 325 MG TABLET 650 MG PO ×2 (13:50→23:24)
[2024-08-07] MEDS: hydrOXYzine HCL 25 MG TABLET PO (13:50)
[2024-08-07 19:20] VITALS: BP 126/58; PULSE 88; TEMP 36.6; O2SAT 98
[2024-08-07] MEDS: Atorvastatin Calcium 40 MG TABLET PO (19:37)
[2024-08-07] MEDS: Nicotine 14 MG PATCH.TD24 TRANSDERMA (19:37)
[2024-08-08 08:00] VITALS: BP 134/69; PULSE 85; RESP 18; TEMP 36.5; O2SAT 100
[2024-08-08] MEDS: Fluticasone Propionate Nasal 16 GM SPRAY 1 SPRAY NOSTRIL-B (08:32)
[2024-08-08 08:33] VITALS: BP 134/69
[2024-08-08] MEDS: buPROPion HCl XL 150 MG TAB.ER.24H 450 MG PO (08:33)
[2024-08-08] MEDS: Multivitamin TABLET 1 TAB PO (08:33)
[2024-08-08] MEDS: Cholecalciferol (Vitamin D3) 25 MCG TABLET 50 MCG PO (08:33)
[2024-08-08] MEDS: Gabapentin 300 MG CAPSULE PO ×3 (08:33→20:46)
[2024-08-08] MEDS: Aspirin 81 MG TAB.CHEW PO (08:33)
[2024-08-08] MEDS: Furosemide 20 MG TABLET PO (08:33)
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
[2024-08-08] MEDS: Ibuprofen 600 MG TABLET PO (11:23)
[2024-08-08] MEDS: hydrOXYzine HCL 25 MG TABLET PO ×2 (11:27→20:48)
[2024-08-08 20:00] VITALS: BP 169/63; PULSE 80; TEMP 36.4; O2SAT 97
[2024-08-08] MEDS: Nicotine 14 MG PATCH.TD24 TRANSDERMA (20:45)
[2024-08-08] MEDS: Atorvastatin Calcium 40 MG TABLET PO (20:46)
[2024-08-09 08:35] VITALS: BP 132/68; PULSE 81; RESP 18; TEMP 36.9; O2SAT 96
[2024-08-09] MEDS: Fluticasone Propionate Nasal 16 GM SPRAY 1 SPRAY NOSTRIL-B (08:37)
[2024-08-09] MEDS: buPROPion HCl XL 150 MG TAB.ER.24H 450 MG PO (08:37)
[2024-08-09] MEDS: Cholecalciferol (Vitamin D3) 25 MCG TABLET 50 MCG PO (08:38)
[2024-08-09] MEDS: Gabapentin 300 MG CAPSULE PO ×3 (08:38→20:44)
[2024-08-09] MEDS: Multivitamin TABLET 1 TAB PO (08:39)
[2024-08-09] MEDS: Furosemide 20 MG TABLET PO (08:39)
[2024-08-09] MEDS: Aspirin 81 MG TAB.CHEW PO (08:39)
[2024-08-09] MEDS: Acetaminophen 325 MG TABLET 650 MG PO ×2 (08:44→20:44)
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
[2024-08-09 20:00] VITALS: BP 163/83; PULSE 87; RESP 16; TEMP 36.6; O2SAT 95
[2024-08-09] MEDS: Nicotine 14 MG PATCH.TD24 TRANSDERMA (20:42)
[2024-08-09] MEDS: Ibuprofen 600 MG TABLET PO (20:44)
[2024-08-09] MEDS: hydrOXYzine HCL 25 MG TABLET PO (20:44)
[2024-08-09] MEDS: traZODone HCL 50 MG TABLET PO (20:45)
[2024-08-09] MEDS: Atorvastatin Calcium 40 MG TABLET PO (20:45)
[2024-08-10 08:43] VITALS: BP 124/60; PULSE 88; RESP 18; TEMP 36.8; O2SAT 98
[2024-08-10] MEDS: buPROPion HCl XL 150 MG TAB.ER.24H 450 MG PO (08:44)
[2024-08-10] MEDS: Cholecalciferol (Vitamin D3) 25 MCG TABLET 50 MCG PO (08:45)
[2024-08-10] MEDS: Furosemide 20 MG TABLET PO (08:45)
[2024-08-10] MEDS: Gabapentin 300 MG CAPSULE PO ×3 (08:45→21:51)
[2024-08-10] MEDS: Acetaminophen 325 MG TABLET 650 MG PO (08:46)
[2024-08-10] MEDS: Aspirin 81 MG TAB.CHEW PO (08:47)
[2024-08-10] MEDS: Multivitamin TABLET 1 TAB PO (08:47)
[2024-08-10] MEDS: Fluticasone Propionate Nasal 16 GM SPRAY 1 SPRAY NOSTRIL-B (08:48)
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
[2024-08-10 20:00] VITALS: BP 118/61; PULSE 87; RESP 18; TEMP 36.5; O2SAT 95
[2024-08-10] MEDS: Nicotine 14 MG PATCH.TD24 TRANSDERMA (21:50)
[2024-08-10] MEDS: Ibuprofen 600 MG TABLET PO (21:51)
[2024-08-10] MEDS: hydrOXYzine HCL 25 MG TABLET PO (21:51)
[2024-08-10] MEDS: Atorvastatin Calcium 40 MG TABLET PO (21:51)
[2024-08-10] MEDS: traZODone HCL 50 MG TABLET PO (21:51)
[2024-08-11 08:00] VITALS: BP 134/66; PULSE 76; RESP 18; TEMP 36.4; O2SAT 97
[2024-08-11] MEDS: Gabapentin 300 MG CAPSULE PO ×3 (08:07→21:48)
[2024-08-11] MEDS: Cholecalciferol (Vitamin D3) 25 MCG TABLET 50 MCG PO (08:07)
[2024-08-11] MEDS: buPROPion HCl XL 150 MG TAB.ER.24H 450 MG PO (08:07)
[2024-08-11] MEDS: Aspirin 81 MG TAB.CHEW PO (08:07)
[2024-08-11] MEDS: Furosemide 20 MG TABLET PO (08:08)
[2024-08-11] MEDS: Multivitamin TABLET 1 TAB PO (08:08)
[2024-08-11] MEDS: Acetaminophen 325 MG TABLET 650 MG PO (10:05)
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
[2024-08-11] MEDS: Ibuprofen 600 MG TABLET PO (18:35)
[2024-08-11 19:32] VITALS: BP 117/57; PULSE 80; TEMP 36.8; O2SAT 97
[2024-08-11] MEDS: Nicotine 14 MG PATCH.TD24 TRANSDERMA (21:45)
[2024-08-11] MEDS: hydrOXYzine HCL 25 MG TABLET PO (21:47)
[2024-08-11] MEDS: Atorvastatin Calcium 40 MG TABLET PO (21:47)
[2024-08-11] MEDS: traZODone HCL 50 MG TABLET PO (21:48)
[2024-08-12 08:00] VITALS: BP 138/67; PULSE 77; RESP 18; TEMP 36.6; O2SAT 97
[2024-08-12] MEDS: Cholecalciferol (Vitamin D3) 25 MCG TABLET 50 MCG PO (08:04)
[2024-08-12] MEDS: Furosemide 20 MG TABLET PO (08:04)
[2024-08-12] MEDS: buPROPion HCl XL 150 MG TAB.ER.24H 450 MG PO (08:04)
[2024-08-12] MEDS: Gabapentin 300 MG CAPSULE PO ×3 (08:04→20:53)
[2024-08-12] MEDS: Multivitamin TABLET 1 TAB PO (08:04)
[2024-08-12] MEDS: Aspirin 81 MG TAB.CHEW PO (08:04)
[2024-08-12 09:08] VITALS: BP 138/67; PULSE 77; O2SAT 97
[2024-08-12 13:12] VITALS: BMI 35.5
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
[2024-08-12 19:17] VITALS: BP 124/58; PULSE 84; TEMP 36.7; O2SAT 98
[2024-08-12] MEDS: Nicotine 14 MG PATCH.TD24 TRANSDERMA (20:50)
[2024-08-12] MEDS: Ibuprofen 600 MG TABLET PO (20:52)
[2024-08-12] MEDS: Melatonin 3 MG TABLET 6 MG PO (20:53)
[2024-08-12] MEDS: hydrOXYzine HCL 25 MG TABLET PO (20:54)
[2024-08-12] MEDS: Atorvastatin Calcium 40 MG TABLET PO (20:55)
[2024-08-13 08:25] VITALS: BP 142/72; PULSE 73; RESP 18; TEMP 36.3; O2SAT 100
[2024-08-13] MEDS: Gabapentin 300 MG CAPSULE PO ×3 (08:35→20:26)
[2024-08-13] MEDS: Cholecalciferol (Vitamin D3) 25 MCG TABLET 50 MCG PO (08:35)
[2024-08-13] MEDS: Multivitamin TABLET 1 TAB PO (08:35)
[2024-08-13] MEDS: Aspirin 81 MG TAB.CHEW PO (08:35)
[2024-08-13] MEDS: buPROPion HCl XL 150 MG TAB.ER.24H 450 MG PO (08:35)
[2024-08-13] MEDS: Furosemide 20 MG TABLET PO (08:35)
[2024-08-13] MEDS: Cyclobenzaprine HCl 10 MG TABLET PO (08:36)
[2024-08-13] MEDS: Acetaminophen 325 MG TABLET 650 MG PO (08:36)
[2024-08-13] MEDS: hydrOXYzine HCL 25 MG TABLET PO ×2 (08:37→20:26)
[2024-08-13] MEDS: Ibuprofen 600 MG TABLET PO ×2 (14:28→20:25)
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
[2024-08-13 20:00] VITALS: BP 116/54; PULSE 78; TEMP 36.9; O2SAT 96
[2024-08-13] MEDS: Nicotine 14 MG PATCH.TD24 TRANSDERMA (20:24)
[2024-08-13] MEDS: Atorvastatin Calcium 40 MG TABLET PO (20:26)
[2024-08-13] MEDS: Melatonin 3 MG TABLET 6 MG PO (20:26)
[2024-08-14 08:32] LABS: Glucose, Whole Blood 75 mg/dL (60-115)
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
[2024-08-14 09:03] VITALS: BP 161/93; PULSE 93; RESP 18; TEMP 36; O2SAT 100
[2024-08-14] MEDS: Fluticasone Propionate Nasal 16 GM SPRAY 1 SPRAY NOSTRIL-B (09:04)
[2024-08-14] MEDS: Cholecalciferol (Vitamin D3) 25 MCG TABLET 50 MCG PO (09:05)
[2024-08-14] MEDS: buPROPion HCl XL 150 MG TAB.ER.24H 450 MG PO (09:05)
[2024-08-14] MEDS: Multivitamin TABLET 1 TAB PO (09:06)
[2024-08-14] MEDS: Furosemide 20 MG TABLET PO (09:06)
[2024-08-14] MEDS: Ibuprofen 600 MG TABLET PO ×3 (09:06→20:32)
[2024-08-14] MEDS: Gabapentin 300 MG CAPSULE PO ×3 (09:06→20:32)
[2024-08-14] MEDS: Aspirin 81 MG TAB.CHEW PO (09:10)
[2024-08-14] MEDS: Cyclobenzaprine HCl 10 MG TABLET PO (12:57)
--- NOTE | 2024-08-14 13:28 | PC.NURSE ---
Addendum entered by Cheyenne Chaves RN 08/14/24 14:34: Dr Lulú Medina visited and updated about the patient's fall this morning. Original Note: The patient's roommate Jerry told Billy that the patient had fallen in the bathroom, she saw her fall. The patient said that she was walking out of the bathroom and her legs got weak and she fell to a sitting position on the floor. A Rapid Response was called. She denies all injuries. She is dry and she was wearing yellow non slip socks. She could move all extremities within normal limits. The rapid response team along with in house nursing boiler house supervisor Kandi Jim RN, were able to lift her up and off the floor and she ambulated with her walker to the bed. She said she couldn't walk to lunch so she used a wheelchair for a short time today. She is active on PT and was accessed by [facility] who recommend that she uses a walker with a SBA and uses the call page. Patient agreeable to this. Patient was also moved to bed 1 which is closer to the bathroom. Vital signs 96.8-18-93-161/93,100%. Neuro checks within normal limits. POC 75.
--- NOTE | 2024-08-14 15:20 | PM.EVENT ---
Event Note Date of Service: 08/14/24 Event Note: 0800 S:58 year old women with a hx of stroke and MS. RR called for fall in her bathroom while she was washing her hands. She reported that she was walking with her walker and suddenly felt weakness in her legs fell to the ground landing on her bottom. She denied head strike, LOC, headache, dizziness, blurred vision. O:alert and oriented normal lung expansion head normalcephalic atraumatic VS 96.8, 92, 161/93, 100%ra AP Fall without LOC or headstrike. Patient able, with asistance to stand, ambulated with walker to her bed without difficulty Fall no head strike oob with with walker at all times, may need closer monitoring while in the bathroom doing ADLs Time Spent With Patient Time: Total time managing care of this patient today ____ minutes.
[2024-08-14 20:00] VITALS: BP 130/88; PULSE 76; RESP 16; TEMP 36.1; O2SAT 98
[2024-08-14] MEDS: Nicotine 14 MG PATCH.TD24 TRANSDERMA (20:31)
[2024-08-14] MEDS: Atorvastatin Calcium 40 MG TABLET PO (20:32)
[2024-08-14] MEDS: hydrOXYzine HCL 25 MG TABLET PO (20:32)
[2024-08-15 08:21] VITALS: BP 125/67; PULSE 87; RESP 16; TEMP 36.8; O2SAT 95
[2024-08-15] MEDS: buPROPion HCl XL 150 MG TAB.ER.24H 450 MG PO (08:39)
[2024-08-15] MEDS: Gabapentin 300 MG CAPSULE PO ×3 (08:39→20:57)
[2024-08-15] MEDS: Multivitamin TABLET 1 TAB PO (08:39)
[2024-08-15 08:40] VITALS: BP 125/67
[2024-08-15] MEDS: Furosemide 20 MG TABLET PO (08:40)
[2024-08-15] MEDS: Cyclobenzaprine HCl 10 MG TABLET PO (08:40)
[2024-08-15] MEDS: hydrOXYzine HCL 25 MG TABLET PO (08:40)
[2024-08-15] MEDS: Cholecalciferol (Vitamin D3) 25 MCG TABLET 50 MCG PO (08:40)
[2024-08-15] MEDS: Aspirin 81 MG TAB.CHEW PO (08:40)
[2024-08-15] MEDS: Ibuprofen 600 MG TABLET PO ×2 (08:40→21:00)
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
[2024-08-15] MEDS: Acetaminophen 325 MG TABLET 650 MG PO (14:14)
[2024-08-15 20:00] VITALS: BP 147/70; PULSE 81; RESP 18; TEMP 36.2; O2SAT 98
[2024-08-15] MEDS: Atorvastatin Calcium 40 MG TABLET PO (20:57)
[2024-08-15] MEDS: Nicotine 14 MG PATCH.TD24 TRANSDERMA (20:59)
[2024-08-16 08:49] VITALS: BP 149/66; PULSE 91; RESP 18; TEMP 36.3; O2SAT 98
[2024-08-16] MEDS: Aspirin 81 MG TAB.CHEW PO (08:53)
[2024-08-16] MEDS: hydrOXYzine HCL 25 MG TABLET PO ×2 (08:53→14:56)
[2024-08-16] MEDS: buPROPion HCl XL 150 MG TAB.ER.24H 450 MG PO (08:53)
[2024-08-16] MEDS: Cholecalciferol (Vitamin D3) 25 MCG TABLET 50 MCG PO (08:53)
[2024-08-16] MEDS: Acetaminophen 325 MG TABLET 650 MG PO (08:54)
[2024-08-16] MEDS: Cyclobenzaprine HCl 10 MG TABLET PO (08:54)
[2024-08-16] MEDS: Gabapentin 300 MG CAPSULE PO ×2 (08:54→14:56)
[2024-08-16] MEDS: Multivitamin TABLET 1 TAB PO (08:54)
[2024-08-16] MEDS: Ibuprofen 600 MG TABLET PO (08:54)
[2024-08-16 08:55] VITALS: BP 149/66
[2024-08-16] MEDS: Furosemide 20 MG TABLET PO (08:55)
[2024-08-16] MEDS: Fluticasone Propionate Nasal 16 GM SPRAY 1 SPRAY NOSTRIL-B (08:58)
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
[2024-08-16 14:04] VITALS: BP 149/66
== END 2024-08-16 16:02 | disposition home or self-care (01) | DRG 885 ==
PROVIDERS: Psychiatry & Neurology Psychiatry; Social Worker; Admitting Provider Psychiatry & Neurology Psychiatry; Visit Provider Psychiatry & Neurology Psychiatry
DX: F33.2 Major depressive disorder, recurrent severe without psychotic features (principal); R45.851 Suicidal ideations; I69.351 Hemiplegia and hemiparesis following cerebral infarction affecting right dominant side; Z59.811 Housing instability, housed, with risk of homelessness; N39.0 Urinary tract infection, site not specified; F17.210 Nicotine dependence, cigarettes, uncomplicated; Z71.6 Tobacco abuse counseling; G35 Multiple sclerosis; W19.XXXA Unspecified fall, initial encounter; I69.319 Unspecified symptoms and signs involving cognitive functions following cerebral infarction; Z20.822 Contact with and (suspected) exposure to COVID-19; Z79.51 Long term (current) use of inhaled steroids; Z79.82 Long term (current) use of aspirin; Z79.899 Other long term (current) drug therapy
CPT/HCPCS: 0241U; 36415; 73620; 80053; 80061; 81001; 82947; 83036; 84443; 87086; 87088; 87186; 93005; 97116; 97162

== ENCOUNTER → 2024-06-21 18:27 | Outpatient (BNV) | payer MEDICARE, SELFPAY | PROVIDERS: Admitting Provider Psychiatry & Neurology Psychiatry; Visit Provider Psychiatry & Neurology Psychiatry | DX: F33.2 Major depressive disorder, recurrent severe without psychotic features (principal); I63.9 Cerebral infarction, unspecified; G35 Multiple sclerosis | CPT/HCPCS: 90792; 99231; 99232 ==

== ENCOUNTER → 2024-06-21 18:27 | Outpatient (BNV) | payer MEDICARE, SELFPAY | PROVIDERS: Admitting Provider Psychiatry & Neurology Psychiatry; Visit Provider Student in an Organized Health Care Education/Training Program | DX: R45.851 Suicidal ideations (principal); F33.9 Major depressive disorder, recurrent, unspecified; I10 Essential (primary) hypertension; E78.5 Hyperlipidemia, unspecified | CPT/HCPCS: 99221 ==

== ENCOUNTER → 2024-06-21 18:27 | Outpatient (BNV) | payer MEDICARE, SELFPAY | PROVIDERS: Admitting Provider Psychiatry & Neurology Psychiatry; Visit Provider Psychiatry & Neurology Psychiatry | DX: F33.2 Major depressive disorder, recurrent severe without psychotic features (principal); I63.9 Cerebral infarction, unspecified; G35 Multiple sclerosis | CPT/HCPCS: 99231; 99232 ==